=== PATIENT | male | born 1990 | race Caucasian/White ===

== ENCOUNTER 2018-02-10 11:41 | Inpatient (IN) ==
[2018-02-10] MEDS ORDERED: Isovue-370 500 ML INFUS..BTL IV ONE (12:36)
[2018-02-10] MEDS ORDERED: 0.9 % Sodium Chloride 1,000 ML IVC ONE (12:37)
[2018-02-10] MEDS ORDERED: *HR* Morphine 2 MG/ML SYRINGE IVP ONE ×2 (12:37→15:32)
[2018-02-10] MEDS ORDERED: Ondansetron 4 MG/2 ML VIAL IVP ONE ×2 (12:37→20:07)
--- NOTE | 2018-02-10 12:41 | Emergency Department Note ---
Disposition Clinical Impression: Hepatitis Disposition: Admitted As Inpatient Condition: Good Abdominal Pain HPI - General Chief Complaint: ED Abdominal Pain Stated Complaint: abd pain Time Seen by Provider: 02/10/18 12:24 Source: patient Mode of arrival: ambulatory Limitations: no limitations Nursing Notes Reviewed: Yes Vital Signs Reviewed: Yes - History of Present Illness HPI Narrative: Patient presents today to the emergency department for evaluation of generalized abdominal pain. Patient's abdominal pain started approximately 1 week ago. He describes both right upper quadrant as well as generalized abdominal pain that has moderate tenderness to palpation with associated guarding. The patient has also had nausea without significant vomiting. Patient has had what he describes as "white stools". The patient does have a family history of gallbladder disease. He does have a previous history of IV drug use in the past. Patient does smoke on a daily basis. Patient does not take any medications on a regular basis at home. Patient has not had any similar symptoms in the past. Patient has not been worked up for this. Patient will undergo further evaluation for both right upper quadrant abdominal pain as well as concern for liver disease. Blood work and CT scan have been ordered. IV fluids as well as Zofran and morphine have been ordered. Pain Scale: 7 - Related Data Home Medications Medication Instructions Recorded Confirmed No Known Home Drugs 02/10/18 02/10/18 Allergies Allergy/AdvReac Type Severity Reaction Status Date / Time No Known Allergies Allergy Verified 12/15/17 17:23 Review of Systems: CONSTITUTIONAL: Generalized weakness and fatigue No weight loss, fever HEENT: Eyes: No visual changes. Ears, Nose, Throat: No hearing loss, difficulty talking or unable to swallow. SKIN: No rash or itching. CARDIOVASCULAR: No chest pain, chest pressure or chest discomfort. No palpitations or edema. RESPIRATORY: No shortness of breath, cough or sputum. GASTROINTESTINAL: Generalized abdominal pain with nausea and change in stools GENITOURINARY: No burning on urination or hematuria. NEUROLOGICAL: No headache, dizziness, syncope, paralysis, ataxia, numbness or tingling in the extremities. No change in bowel or bladder control. MUSCULOSKELETAL: No muscle pain, back pain, joint pain or stiffness. Psych: No anxiety, depression Abdominal Pain PMH - Past Medical History Medical history: Reports: no medical history Male Surgical History: Reports: orthopedic, other, other Psychiatric history: Reports: no psych history - Social History Smoking status: Former smoker Alcohol use: Reports: none Drug use: Reports: none Physical Exam General: Well appearing, nontoxic, no acute distress Head: Normocephalic Atraumatic Eyes: Jaundiced to sclera, PERRL, EOMI ENT: Airway patent, no stridor Neck: supple, no meningismus Chest: Lungs clear to auscultation bilateral Cardiac: Regular rate and rhythm, no murmurs, rubs or gallops Abdomen: soft, moderate generalized abdominal tenderness worse in the right upper quadrant with associated guarding but no rebound tenderness, nondistended; Musculoskeletal: Calves symmetric, nontender Skin: No rash, normal skin tone Neuro: Alert and Oriented to person, place, and time; No focal deficit, CN 2-12 symmetric and intact Course - Reevaluation(s) Reevaluation #1: Medications to help improve symptoms. Patient with acute hepatitis and elevation in the bilirubin. Possible viral versus other etiology considered. Acetaminophen negative. CAT scan does not show a gallstone within the common bile duct. Patient will require further evaluation. We will discuss with GI to determine if patient can stay at our facility or not. - Consultations Consultation #1: Discussed with Dr. Sanchez. Patient is able to stay at this facility for further workup. Consultation #2: Discussed with hospitalist. Patient accepted for admission. Vital Signs Temperature 98.5 F 02/10/18 11:45 Pulse Rate 96 02/10/18 11:45 Respiratory Rate 18 02/10/18 11:45 Blood Pressure 117/77 02/10/18 11:45 O2 Sat by Pulse Oximetry 99 02/10/18 11:45 Temperature 97.7 F 02/10/18 23:31 Pulse Rate 68 02/10/18 23:31 Respiratory Rate 14 02/10/18 23:31 Blood Pressure 109/64 02/10/18 17:20 O2 Sat by Pulse Oximetry 97 02/10/18 23:31 Oxygen Delivery Oxygen Delivery Room Air Abdominal Pain - Lab Data Result diagrams: 02/10/18 12:31 02/10/18 12:31 Lab Results 02/10/18 02/10/18 02/10/18 Range/Units 12:31 12:31 12:31 WBC 7.0 (4.3-11.1) K/mcL RBC 5.31 (4.19-5.50) M/mcL Hgb 15.3 (12.9-16.9) g/dL Hct 46.7 (37.5-50.1) % MCV 87.9 (83.0-100.0) fL MCH 28.8 (28.0-33.3) pg MCHC 32.8 (31.6-35.5) g/dL RDW 14.8 H (11.5-14.5) % Plt Count 319 (140-400) K/mcL MPV 10.2 (9.4-12.4) fL Immature Gran % 0.3 (0-4) % Seg Neutrophils % 64.8 % Lymphocytes % 22.3 % Monocytes % 9.1 % Eosinophils % 2.4 % Basophils % 1.1 % Neutrophils # 4.5 (1.6-8.9) K/mcL Lymphocytes # 1.6 (0.6-4.6) K/mcL Monocytes # 0.6 (0.0-1.3) K/mcL Eosinophils # 0.2 (0.0-0.6) K/mcL Basophils # 0.1 (0.0-0.2) K/mcL PT 12.2 H (9.4-12.1) Seconds INR 1.1 Sodium 135 L (136-145) mEq/L Potassium 3.7 (3.5-5.1) mEq/L Chloride 104 (98-107) mEq/L Carbon Dioxide 25 (23-29) mEq/L BUN 6 (6-20) mg/dL Creatinine 0.70 (0.70-1.30) mg/dL Est GFR ( Amer) > 60 (> 60) Est GFR (Non-Af Amer) > 60 (> 60) BUN/Creatinine Ratio 9 (6-26) Glucose 127 H (70-105) mg/dL Calculated Osmolality 279 L (280-300) Lactic Acid (0.5-2.2) mmol/L Calcium 8.9 (8.6-10.3) mg/dL Total Bilirubin 9.6 H (0.3-1.0) mg/dL Direct Bilirubin 6.5 H (0.0-0.2) mg/dL Indirect Bilirubin 3.1 H (0.0-1.2) mg/dL AST 941 H (13-39) Units/L ALT > 500 H (7-52) Units/L Alkaline Phosphatase 158 H (34-104) Units/L Creatine Kinase 27 L (30-223) Units/L Serum Total Protein 6.1 L (6.4-8.9) g/dL Albumin 3.7 (3.5-5.7) g/dL Globulin 2.4 (2.4-3.5) g/dL Albumin/Globulin Ratio 1.5 (1.1-2.2) Amylase 37 (29-103) Units/L Lipase 37 (11-82) Units/L Urine Color (Yellow) Urine Clarity (Clear) Urine pH (5.0-8.0) pH Units Ur Specific Seco (1.010-1.025) Urine Protein (Neg-Trace) mg/dL Urine Glucose (UA) (Normal) mg/dL Urine Ketones (Negative) mg/dL Urine Blood (Negative) Urine Nitrite (Negative) Urine Bilirubin (Negative) Urine Urobilinogen (Normal) mg/dL Ur Leukocyte Esterase (Negative) Urine Microscopic RBC (0-3) per hpf Ur Squamous Epith Cells (None-Few) per lpf Urine Bacteria (None-Few) per hpf Hyaline Casts (None-Few) per lpf Ur Culture Indicated? (NO) Acetaminophen < 10 L (10-20) mcg/mL Hep Bs Antigen (Nonreactive) 02/10/18 02/10/18 02/10/18 Range/Units 12:31 13:48 14:20 WBC (4.3-11.1) K/mcL RBC (4.19-5.50) M/mcL Hgb (12.9-16.9) g/dL Hct (37.5-50.1) % MCV (83.0-100.0) fL MCH (28.0-33.3) pg MCHC (31.6-35.5) g/dL RDW (11.5-14.5) % Plt Count (140-400) K/mcL MPV (9.4-12.4) fL Immature Gran % (0-4) % Seg Neutrophils % % Lymphocytes % % Monocytes % % Eosinophils % % Basophils % % Neutrophils # (1.6-8.9) K/mcL Lymphocytes # (0.6-4.6) K/mcL Monocytes # (0.0-1.3) K/mcL Eosinophils # (0.0-0.6) K/mcL Basophils # (0.0-0.2) K/mcL PT (9.4-12.1) Seconds INR Sodium (136-145) mEq/L Potassium (3.5-5.1) mEq/L Chloride (98-107) mEq/L Carbon Dioxide (23-29) mEq/L BUN (6-20) mg/dL Creatinine (0.70-1.30) mg/dL Est GFR ( Amer) (> 60) Est GFR (Non-Af Amer) (> 60) BUN/Creatinine Ratio (6-26) Glucose (70-105) mg/dL Calculated Osmolality (280-300) Lactic Acid 1.5 (0.5-2.2) mmol/L Calcium (8.6-10.3) mg/dL Total Bilirubin (0.3-1.0) mg/dL Direct Bilirubin (0.0-0.2) mg/dL Indirect Bilirubin (0.0-1.2) mg/dL AST (13-39) Units/L ALT (7-52) Units/L Alkaline Phosphatase (34-104) Units/L Creatine Kinase (30-223) Units/L Serum Total Protein (6.4-8.9) g/dL Albumin (3.5-5.7) g/dL Globulin (2.4-3.5) g/dL Albumin/Globulin Ratio (1.1-2.2) Amylase (29-103) Units/L Lipase (11-82) Units/L Urine Color Dark Yellow (Yellow) Urine Clarity Slightly Hazy (Clear) Urine pH 6.5 (5.0-8.0) pH Units Ur Specific Seco 1.008 L (1.010-1.025) Urine Protein Negative (Neg-Trace) mg/dL Urine Glucose (UA) Normal (Normal) mg/dL Urine Ketones Negative (Negative) mg/dL Urine Blood Negative (Negative) Urine Nitrite Negative (Negative) Urine Bilirubin Moderate H (Negative) Urine Urobilinogen Normal (Normal) mg/dL Ur Leukocyte Esterase Negative (Negative) Urine Microscopic RBC 0-3 (0-3) per hpf Ur Squamous Epith Cells None Seen (None-Few) per lpf Urine Bacteria None Seen (None-Few) per hpf Hyaline Casts None Seen (None-Few) per lpf Ur Culture Indicated? NO (NO) Acetaminophen (10-20) mcg/mL Hep Bs Antigen Nonreactive (Nonreactive)
[2018-02-10 12:57] LABS: Basophils # 0.1 K/mcL (0.0-0.2); Basophils % 1.1 %; Eosinophils # 0.2 K/mcL (0.0-0.6); Eosinophils % 2.4 %; Hematocrit 46.7 % (37.5-50.1); Hemoglobin 15.3 g/dL (12.9-16.9); Immature Granulocytes % 0.3 % (0-4); Lymphocytes # 1.6 K/mcL (0.6-4.6); Lymphocytes % 22.3 %; Mean Corpuscular HGB Conc 32.8 g/dL (31.6-35.5); Mean Corpuscular Hemoglobin 28.8 pg (28.0-33.3); Mean Corpuscular Volume 87.9 fL (83.0-100.0); Mean Platelet Volume 10.2 fL (9.4-12.4); Monocytes # 0.6 K/mcL (0.0-1.3); Monocytes % 9.1 %; Neutrophils # 4.5 K/mcL (1.6-8.9); Platelet Count 319 K/mcL (140-400); Red Blood Count 5.31 M/mcL (4.19-5.50); Red Cell Distribution Width 14.8 % (11.5-14.5); Segmented Neutrophils % 64.8 %
[2018-02-10 13:05] LABS: INR 1.1; Prothrombin Time 12.2 Seconds (9.4-12.1)
[2018-02-10 13:26] LABS: Acetaminophen < 10 mcg/mL (10-20); Alanine Aminotransferase > 500 Units/L (7-52); Albumin 3.7 g/dL (3.5-5.7); Albumin/Globulin Ratio 1.5 (1.1-2.2); Alkaline Phosphatase 158 Units/L (34-104); Amylase 37 Units/L (29-103); Aspartate Amino Transferase 941 Units/L (13-39); BUN/Creatinine Ratio 9 (6-26); Bilirubin,Direct 6.5 mg/dL (0.0-0.2); Bilirubin,Indirect 3.1 mg/dL (0.0-1.2); Bilirubin,Total 9.6 mg/dL (0.3-1.0); Blood Urea Nitrogen 6 mg/dL (6-20); Calcium 8.9 mg/dL (8.6-10.3); Carbon Dioxide 25 mEq/L (23-29); Chloride 104 mEq/L (98-107); Creatine Kinase 27 Units/L (30-223); Globulin 2.4 g/dL (2.4-3.5); Glucose 127 mg/dL (70-105); Lipase 37 Units/L (11-82); Osmolality,Calculated 279 (280-300); Potassium 3.7 mEq/L (3.5-5.1); Sodium 135 mEq/L (136-145); Total Protein 6.1 g/dL (6.4-8.9); eGFR For Non-African Americans > 60 (> 60)
[2018-02-10 14:02] LABS: Bilirubin,Urine Moderate (Negative); Blood,Urine Negative (Negative); Color,Urine Dark Yellow (Yellow); Glucose,Urine (UA) Normal (Normal); Ketones,Urine Negative (Negative); Leukocyte Esterase,Urine Negative (Negative); Nitrite,Urine Negative (Negative); PH,Urine 6.5 pH Units (5.0-8.0); Protein,Urine Negative (Neg-Trace); Specific Gravity,Urine 1.008 (1.010-1.025); Urobilinogen,Urine Normal (Normal)
[2018-02-10 14:07] LABS: Bacteria,Urine None Seen per hpf (None-Few); Hyaline Casts,Urine None Seen per lpf (None-Few); RBC,Urine 0-3 per hpf (0-3); Squamous Epithelial Cell,Urine None Seen per lpf (None-Few)
[2018-02-10 14:19] LABS: Clarity,Urine Slightly Hazy (Clear)
[2018-02-10 15:28] LABS: Hepatitis B Surface Antigen Nonreactive (Nonreactive)
[2018-02-10] MEDS ORDERED: Naloxone 0.4 MG/ML INJ IVP PRN (17:17)
--- NOTE | 2018-02-10 17:37 | Internal Med History&Physical ---
Date of Encounter: 02/10/18 Time of Encounter: 17:00 Internal Medicine - H&P: HPI Chief complaint: Abdominal Pain Admitted From: Home Plans for Post Hospital Care: Home History of present illness: Mr. Nguyen is a 27 year old male with no significant past medical history who presents for 7/10 sharp constant abdominal pain since last Wednesday02/04/2018 getting progressively worse. Abdominal pain accompanied by white stools, dark urine, nausea, and chills. No alleviating or exacerbating factors. No current treatment. Admits to getting a tattoo on his left arm 3 months ago and is unsure if the tattoo needle was clean or contaminated. Also admits to unprotected sex with 5 female partners over the past 6 months. Reports his father has Hepatitis C. Had orthopedic surgery to left foot in November 2017 following a fall. Denies any recent street drug use, homosexual activity, homelessness, or incarceration. Has never experienced abdominal pain like this before. Discussed patient with Dr Ortiz. Past Med Surg Social Fam HX - Past Medical History Medical history: no medical history Psychiatric history: no psych history - Past Surgical History Additional surgical history: right hand sx - Social History Smoking Status: Former smoker Smokeless Tobacco Status: No Alcohol use: none Drug use: none Internal Medicine - H&P: Meds No Known Home Drugs 02/10/18 [History] 3 Allergy/AdvReac Type Severity Reaction Status Date / Time No Known Allergies Allergy Verified 12/15/17 17:23 All Systems PM: A 10-system review of systems was performed and is negative for pertinent findings except as documented above in the HPI. - Constitutional Vitals: Temp Pulse Resp BP Pulse Ox 98.4 F 70 16 109/64 97 02/10/18 17:20 02/10/18 17:20 02/10/18 17:20 02/10/18 17:20 02/10/18 17:20 Exam: General: Alert and oriented. Skin:Normal color, no rash, no lesions. HEENT:Pupils equal, round and reactive. Cardiovascular:Normal S1 & S2, no rubs, murmurs or gallops. No JVD. Pulse regular. Lungs:Normal breath sounds, no wheezes or crackles. Abdomen:Soft, no rigidity. Tenderness noted with and without palpation throughout abdomen but primarily in RUQ. No rebound tenderness. Bowel sounds hyperactive. Extremities:No deformity, no edema or tenderness, no joint swelling or clubbing. Neurological:Normal cognition and motor skills. Pulses:Carotid and radial pulses normal +2. Rest of the physical exam is non contributory. Internal Med - H&P Results - Labs CBC & Chem 7: 02/10/18 12:31 02/10/18 12:31 - Assessment and plan (1) Hepatitis Current Visit: Yes Status: Suspected Assessment and plan: GI consulted by ER. Repeat labs in a.m. Hepatitis profile pending. (2) Tobacco abuse Current Visit: Yes Status: Chronic Assessment and plan: Smoking cessation encouraged. Denies need for nicotine patch. - Time Spent With Patient Total time spent is greater than 50% in coordination of care (as documented) at patient's floor/unit and/or counseling patient:
[2018-02-10] MEDS: Ibuprofen 400 MG TABLET PO PRN (18:41)
[2018-02-10] MEDS ORDERED: Ketorolac 15 MG/ML VIAL IVP ONE (20:07)
[2018-02-11 03:30] LABS: Hepatitis A Antibody IgM Nonreactive (Nonreactive); Hepatitis B Core IgM Nonreactive (Nonreactive)
[2018-02-11 05:18] LABS: Hepatitis C Virus Antibody Reactive (Nonreactive)
[2018-02-11 05:45] LABS: Basophils # 0.1 K/mcL (0.0-0.2); Basophils % 1.1 %; Eosinophils # 0.3 K/mcL (0.0-0.6); Eosinophils % 4.4 %; Hematocrit 42.4 % (37.5-50.1); Immature Granulocytes % 0.3 % (0-4); Lymphocytes # 1.9 K/mcL (0.6-4.6); Lymphocytes % 30.9 %; Mean Corpuscular Hemoglobin 28.6 pg (28.0-33.3); Mean Corpuscular Volume 86.7 fL (83.0-100.0); Mean Platelet Volume 10.7 fL (9.4-12.4); Monocytes # 0.6 K/mcL (0.0-1.3); Monocytes % 10.1 %; Neutrophils # 3.3 K/mcL (1.6-8.9); Platelet Count 292 K/mcL (140-400); Red Blood Count 4.89 M/mcL (4.19-5.50); Red Cell Distribution Width 14.9 % (11.5-14.5); Segmented Neutrophils % 53.2 %
[2018-02-11 07:07] LABS: Alanine Aminotransferase > 500 Units/L (7-52); Albumin 3.2 g/dL (3.5-5.7); Albumin/Globulin Ratio 1.5 (1.1-2.2); Alkaline Phosphatase 138 Units/L (34-104); Aspartate Amino Transferase 857 Units/L (13-39); BUN/Creatinine Ratio 7 (6-26); Bilirubin,Direct 6.3 mg/dL (0.0-0.2); Bilirubin,Indirect 3.2 mg/dL (0.0-1.2); Bilirubin,Total 9.5 mg/dL (0.3-1.0); Blood Urea Nitrogen 5 mg/dL (6-20); Calcium 8.5 mg/dL (8.6-10.3); Carbon Dioxide 24 mEq/L (23-29); Chloride 105 mEq/L (98-107); Globulin 2.2 g/dL (2.4-3.5); Glucose 102 mg/dL (70-105); Osmolality,Calculated 281 (280-300); Potassium 3.8 mEq/L (3.5-5.1); Sodium 137 mEq/L (136-145); Total Protein 5.4 g/dL (6.4-8.9); eGFR For Non-African Americans > 60 (> 60)
[2018-02-11] MEDS: Ibuprofen 400 MG TABLET PO PRN (10:38)
--- NOTE | 2018-02-11 11:11 | Gastroenterology Consult Note ---
<Issa De Anda Connie - Last Filed: 02/11/18 11:11> Date of Encounter: 02/11/18 Time of Encounter: 10:00 - Assessment and plan (1) Abdominal pain Current Visit: Yes Status: Acute Assessment and plan: CT A/P shows moderate gallbladder wall edema with a small amount of pericholecystic fluid. No evidence of calcified gallstones. Hepatic steatosis, with mild periportal edema. Moderate amount of inflammation within the hepatic hilum and the gallbladder fossa. Mildly enlarged periportal and upper abdominal lymph nodes. Findings may be seen in the setting of hepatitis. Check RUQ US. Qualifiers: Abdominal location: generalized Qualified Code(s): R10.84 - Generalized abdominal pain (2) Hepatitis C antibody test positive Current Visit: Yes Status: Acute Assessment and plan: Hepatitis C screening positive. Check hepatitis C quantitative and genotype to evaluate for active infection. (3) Elevated LFTs Current Visit: Yes Status: Acute Assessment and plan: Complete liver workup and RUQ US. (4) Jaundice Current Visit: Yes Status: Acute Assessment and plan: Total bili elevated at 9.5 with AST 857 and ALT > 500. Complete liver workup and right upper quadrant ultrasound. Hepatitis A and B negative. (5) Fatty liver Current Visit: Yes Status: Acute Assessment and plan: Complete liver workup and right upper quadrant ultrasound. - Time Spent With Patient Total time spent is greater than 50% in coordination of care (as documented) at patient's floor/unit and/or counseling patient: GI History of Present Illness - Data of Consult Patient: new to practice Consult date: 02/11/18 Requesting Physician: Christian Bravo MD - Consult Narrative Reason for consult: Elevated LFTs, Hepatitis History of present illness: Mr. Nguyen is a 27 year old male with no significant PMHx who presented to the ED with complaints of abdominal pain that started on 02/04 and had progressively worsened. He reports white stools, nausea, and chills. Patient states greasy or fatty foods worsen abdominal pain. Admits to getting a tattoo on his left arm 3 months ago and is unsure if the tattoo needle was clean or contaminated. Also admits to unprotected sex with 5 female partners over the past 6 months. Reports his father has Hepatitis C. He denies history of IV drug use, but admits to history of snorting drugs. CT A/P shows moderate gallbladder wall edema with a small amount of pericholecystic fluid. No evidence of calcified gallstones. Hepatic steatosis, with mild periportal edema. Moderate amount of inflammation within the hepatic hilum and the gallbladder fossa. Mildly enlarged periportal and upper abdominal lymph nodes. Findings may be seen in the setting of hepatitis. Procedures: None NSAIDs: None Anticoagulation: None Past Med Surg Social Fam HX - Past Medical History Medical history: no medical history Psychiatric history: no psych history - Past Surgical History Additional surgical history: right hand sx - Social History Smoking Status: Former smoker Smokeless Tobacco Status: No Alcohol use: none Drug use: none - Family History Mother Age: 54 Living Status: Still Living Hx Family Autoimmune Disorders: Yes (Rheumatoid arthritis) - Gastrointestinal Gastrointestinal: Present: as per HPI - Constitutional Constitutional: as per HPI - EENT Eyes: as per HPI Ears: Present: as per HPI Nose, mouth and throat: Present: as per HPI - Cardiovascular Cardiovascular ROS: Present: as per HPI - Respiratory Respiratory IM: Present: as per HPI - Genitourinary Genitourinary: Absent: change in color, Urinary frequency - Neurological ROS Neurological GI: Present: as per HPI - Hematologic/Lymphatic Hematologic/Lymphatic pediatric: Present: as per HPI - Musculoskeletal Musculoskeletal ROS GI: Present: as per HPI - Integumentary Integumentary GI: Present: as per HPI - Psychiatric ROS Psychiatric GI: Present: as per HPI - Endocrine Endocrine IM: Present: as per HPI - Constitutional Vitals: Temp Pulse Resp BP Pulse Ox 98.2 F 70 18 94/58 97 02/11/18 08:09 02/11/18 08:09 02/11/18 08:09 02/11/18 08:09 02/11/18 08:09 General appearance: Present: cooperative, A&O X 3, no acute distress, answers questions appropriately - Head Head exam: Present: atraumatic, normocephalic - Eye Eye exam: Present: scleral icterus. Absent: normal appearance - ENT ENT exam: Present: mucous membranes moist - Neck Neck exam general surgery: Present: normal inspection, trachea midline - Respiratory Respiratory exam: Present: CTAB. Absent: rales, rhonchi - Cardiovascular Cardiovascular exam: Present: RRR, +S1, +S2 - GI/Abdominal GI/Abdominal exam: Present: guarding, soft, tenderness (generalized), no peritoneal signs. Absent: distended, firm - Rectal Rectal exam: Present: deferred - Extremities Exam Extremities exam: Present: warm - Neurological Exam Neurological exam: Present: no focal deficits - Psychiatric Psychiatric exam: Present: normal affect, normal mood - Skin Skin exam: Present: dry, intact, warm. Absent: normal color (Jaundice) Results - Labs CBC & Chem 7: 02/11/18 04:53 02/11/18 04:53 Labs: Last Result Calcium 8.5 mg/dL (8.6-10.3) L 02/11/18 04:53 Ferritin 1492 ng/mL (20-250) H 02/11/18 09:18 Entire Visit Hgb 14.0 g/dL (12.9-16.9) 02/11/18 04:53 Hct 42.4 % (37.5-50.1) 02/11/18 04:53 PT 12.2 Seconds (9.4-12.1) H 02/10/18 12:31 Ferritin 1492 ng/mL (20-250) H 02/11/18 09:18 Total Bilirubin 9.5 mg/dL (0.3-1.0) H 02/11/18 04:53 AST 857 Units/L (13-39) H 02/11/18 04:53 ALT > 500 Units/L (7-52) H 02/11/18 04:53 Amylase 37 Units/L (29-103) 02/10/18 12:31 Lipase 37 Units/L (11-82) 02/10/18 12:31 Acetaminophen < 10 mcg/mL (10-20) L 02/10/18 12:31 - ABG ABG results: PT/INR, D-dimer PT 12.2 Seconds (9.4-12.1) H 02/10/18 12:31 Consult Discharge Plan - Plan Referrals: NONE,PCP [Primary Care Provider] - <Konstantin Hodges - Last Filed: 02/11/18 12:48> Date of Encounter: 02/11/18 - Time Spent With Patient Total time spent is greater than 50% in coordination of care (as documented) at patient's floor/unit and/or counseling patient: GI History of Present Illness - Data of Consult Requesting Physician: Christian Bravo MD - Consult Narrative History of present illness: Mr. Nguyen is a 27 year old male - Constitutional Vitals: Temp Pulse Resp BP Pulse Ox 98.1 F 72 16 100/63 98 02/11/18 11:47 02/11/18 11:47 02/11/18 11:47 02/11/18 11:47 02/11/18 11:47 Results - Labs CBC & Chem 7: 02/11/18 04:53 02/11/18 04:53 Labs: Last Result Calcium 8.5 mg/dL (8.6-10.3) L 02/11/18 04:53 Ferritin 1492 ng/mL (20-250) H 02/11/18 09:18 Entire Visit Hgb 14.0 g/dL (12.9-16.9) 02/11/18 04:53 Hct 42.4 % (37.5-50.1) 02/11/18 04:53 PT 12.2 Seconds (9.4-12.1) H 02/10/18 12:31 Ferritin 1492 ng/mL (20-250) H 02/11/18 09:18 Total Bilirubin 9.5 mg/dL (0.3-1.0) H 02/11/18 04:53 AST 857 Units/L (13-39) H 02/11/18 04:53 ALT > 500 Units/L (7-52) H 02/11/18 04:53 Amylase 37 Units/L (29-103) 02/10/18 12:31 Lipase 37 Units/L (11-82) 02/10/18 12:31 Acetaminophen < 10 mcg/mL (10-20) L 02/10/18 12:31 - ABG ABG results: PT/INR, D-dimer PT 12.2 Seconds (9.4-12.1) H 02/10/18 12:31 - Attending Attestation I have personally performed a face to face evaluation on this patient. I have reviewed and agree with the care plan. History and Exam by me shows: Pt seen no active issues. on examination vision does has diffuse jaundice. A: Acute hepatitis C with elevated liver function testing. Recommendation: Ultrasound of the gallbladder supportive care for now. Follow INR and LFTs
[2018-02-11] MEDS: *HR* OxyCODONE Immed Rel 5 MG TABLET PO PRN ×2 (12:55→19:00)
--- NOTE | 2018-02-11 14:23 | Internal Med Progress Note ---
<Ananda Ledesma - Last Filed: 02/11/18 14:08> Hospitalist Progress Note - Encounter Date of Encounter: 02/11/18 Time of Encounter: 11:00 - Subjective Interval History: Family at bedside. Patient gives permission to discuss his medical management in front of family. Patient continues to have complaints of RUQ pain that does not radiate. Pain is sharp and constant. Does admit to improvement since admission. Patient also has history of tattoos by friend. Denies IV drug use. Denies alcohol use and smokes occasionally. Denies illicit drug use. Sexually active without concern of STDs, denies penile discharge or pain. He has nausea but able to tolerate PO intake. Voiding without difficulties. No f/c/vomiting since admission. - Exam Vitals: Temp Pulse Resp BP Pulse Ox 98.1 F 72 16 100/63 98 02/11/18 11:47 02/11/18 11:47 02/11/18 11:47 02/11/18 11:47 02/11/18 11:47 Exam: General: Alert and oriented. Skin: Jaundice diffusely HEENT:scleral icterus bilaterally noted. Cardiovascular:Normal S1 & S2, no rubs, murmurs or gallops. No JVD. Pulse regular. Lungs:Normal breath sounds, no wheezes or crackles. Abdomen:Soft, no rigidity. Tenderness noted with and without palpation throughout abdomen but primarily in RUQ. No rebound tenderness. Bowel sounds hyperactive. Extremities:No deformity, no edema or tenderness, no joint swelling or clubbing. Neurological:Normal cognition and motor skills. Pulses:Carotid and radial pulses normal +2. Rest of the physical exam is non contributory. - Assessment and Plan (1) Hepatitis Current Visit: Yes Status: Suspected Assessment and Plan: Hepatitis C screening positive with multiple risk factors. Will obtain hep C quant and genotype. CT A/P shows moderate gallbladder wall edema with a small amount of pericholecystic fluid. No evidence of calcified gallstones. Hepatic steatosis, with mild periportal edema. Moderate amount of inflammation within the hepatic hilum and the gallbladder fossa. Mildly enlarged periportal and upper abdominal lymph nodes. Findings may be seen in the setting of hepatitis. GI consulted and liver U/S ordered. Will continue supportive care pending genotyping and quant. (2) Abdominal pain Current Visit: Yes Status: Acute Assessment and Plan: see above. (3) Hepatitis C antibody test positive Current Visit: Yes Status: Acute Assessment and Plan: see above (4) Elevated LFTs Current Visit: Yes Status: Acute Assessment and Plan: Transaminitis improved with supportive care. (5) Jaundice Current Visit: Yes Status: Acute Assessment and Plan: secondary to hep C infection (6) Tobacco abuse Current Visit: Yes Status: Chronic Assessment and Plan: Encouraged cessation. DVT Prophylaxis: Lovenox 40mg SQ - Time Spent with Patient Total time spent is greater than 50% in coordination of care (as documented) at patient's floor/unit and/or counseling patient: Greater than 35 minutes Plan of Care Discussed with: family Internal Medicine: Result - Labs CBC & Chem 7: 02/11/18 04:53 02/11/18 04:53 - ABG Interpretation ABG results: PT/INR, D-dimer PT 12.2 Seconds (9.4-12.1) H 02/10/18 12:31 - VTE Reasons for not Prescribing Prophylaxis: Treatment not Indicated - Low risk for VTE Consult Discharge Plan - Plan Referrals: NONE,PCP [Primary Care Provider] - <Christian Flores - Last Filed: 02/11/18 17:06> Hospitalist Progress Note - Encounter Date of Encounter: 02/11/18 - Exam Vitals: Temp Pulse Resp BP Pulse Ox 98.2 F 64 15 113/74 99 02/11/18 14:12 02/11/18 14:12 02/11/18 14:12 02/11/18 14:12 02/11/18 14:12 - Assessment and Plan (1) Hepatitis Current Visit: Yes Status: Suspected (2) Tobacco abuse Current Visit: Yes Status: Chronic - Time Spent with Patient Total time spent is greater than 50% in coordination of care (as documented) at patient's floor/unit and/or counseling patient: Internal Medicine: Result - Labs CBC & Chem 7: 02/11/18 04:53 02/11/18 04:53 - ABG Interpretation ABG results: PT/INR, D-dimer PT 12.2 Seconds (9.4-12.1) H 02/10/18 12:31 - Impressions Impressions Liver Ultrasound 02/11/18 15:30 IMPRESSION: 1. No evidence of cholecystitis. 2. The gallbladder is nondistended, but appears thick walled. On the previous CT exam, there was periportal edema. Findings suggest liver dysfunction. Correlation with the patient's liver function tests is recommended. No biliary dilatation. D/ / Dave Mendoza MD / Dave Mendoza MD Interpreting Provider: Dave Mendoza MD - Attending Attestation I examined this patient and my medical decision-making was reviewed with the Resident Physician Dr. Ledesma. I agree with the documented findings, disposition and treatment plan as described except to the extent set forth below. Mr. Nguyen is a 27 year old male with no significant past medical history who presents for 11/16 sharp constant abdominal pain since last Wednesday02/04/2018 getting progressively worse. Abdominal pain accompanied by white stools, dark urine, nausea, and chills. No alleviating or exacerbating factors. No current treatment. Admits to getting a tattoo on his left arm 3 months ago and is unsure if the tattoo needle was clean or contaminated. Also admits to unprotected sex with 5 female partners over the past 6 months. Reports his father has Hepatitis C. Had orthopedic surgery to left foot in November 2017 following a fall. Denies any recent street drug use, homosexual activity, homelessness, or incarceration. Has never experienced abdominal pain like this before. Pt still c/o abdominal pain. Denied any CP // SOB. No fever. Gen: A, A, O x 3 Chest: Diminished BS b/l Heart: S1S2+ RRR No murmurs a/p 1. Acute hepatitis due to Hep C will f/u on U/S of Liver cont trend on LFT's check Hep C viral load and Velia type <Ananda Ledesma - Last Filed: 02/11/18 14:08> (2) Abdominal pain Qualifiers: Abdominal location: generalized Qualified Code(s): R10.84 - Generalized abdominal pain
--- NOTE | 2018-02-11 17:42 | Electrocardiograph Report ---
[facility] Test Date: 2018-02-10 Pat Name: João Nguyen Department: [id number] Room: 3A44 Gender: M Endodontist: : 1990 Requested By: [id number] Order Number: [id number] Reading MD: Allen Payne Measurements Intervals [place] Rate: 83 P: 51 TX: 148 QRS: 98 QRSD: 94 T: 6 QT: 348 QTc: 409 Interpretive Statements Sinus rhythm Borderline right axis deviation Electronically Signed On 02-11-2018 17:41:06 EDT by Allen Payne
[2018-02-11] MEDS: Ondansetron 4 MG/2 ML VIAL IVP PRN (17:50)
[2018-02-11] MEDS: Melatonin 3 MG TABLET PO PRN (22:08)
[2018-02-12] MEDS: *HR* OxyCODONE Immed Rel 5 MG TABLET PO PRN ×4 (01:13→21:55)
[2018-02-12 10:52] LABS: Red Blood Count 4.71 M/mcL (4.19-5.50)
[2018-02-12 10:53] LABS: Basophils # 0.1 K/mcL (0.0-0.2); Basophils % 1.2 %; Eosinophils # 0.2 K/mcL (0.0-0.6); Eosinophils % 3.2 %; Hematocrit 41.5 % (37.5-50.1); Hemoglobin 13.8 g/dL (12.9-16.9); Immature Granulocytes % 0.2 % (0-4); Lymphocytes # 1.7 K/mcL (0.6-4.6); Lymphocytes % 29.9 %; Mean Corpuscular HGB Conc 33.3 g/dL (31.6-35.5); Mean Corpuscular Hemoglobin 29.3 pg (28.0-33.3); Mean Corpuscular Volume 88.1 fL (83.0-100.0); Mean Platelet Volume 10.3 fL (9.4-12.4); Monocytes # 0.6 K/mcL (0.0-1.3); Monocytes % 10.3 %; Neutrophils # 3.1 K/mcL (1.6-8.9); Platelet Count 278 K/mcL (140-400); Red Cell Distribution Width 15.4 % (11.5-14.5); Segmented Neutrophils % 55.2 %
[2018-02-12 12:10] LABS: Alanine Aminotransferase > 500 Units/L (7-52); Albumin 3.2 g/dL (3.5-5.7); Albumin/Globulin Ratio 1.6 (1.1-2.2); Alkaline Phosphatase 126 Units/L (34-104); Aspartate Amino Transferase 857 Units/L (13-39); BUN/Creatinine Ratio 6 (6-26); Bilirubin,Total 10.2 mg/dL (0.3-1.0); Blood Urea Nitrogen 5 mg/dL (6-20); Calcium 8.3 mg/dL (8.6-10.3); Carbon Dioxide 25 mEq/L (23-29); Chloride 106 mEq/L (98-107); Glucose 136 mg/dL (70-105); Osmolality,Calculated 283 (280-300); Sodium 137 mEq/L (136-145); Total Protein 5.2 g/dL (6.4-8.9); eGFR For Non-African Americans > 60 (> 60)
--- NOTE | 2018-02-12 13:14 | Internal Med Progress Note ---
Hospitalist Progress Note - Encounter Date of Encounter: 02/12/18 Time of Encounter: 09:55 - Subjective Interval History: Mr. Nguyen is a 27 year old male with no significant past medical history who presents for 7/10 sharp constant abdominal pain since last Wednesday02/04/2018 getting progressively worse. Abdominal pain accompanied by white stools, dark urine, nausea, and chills. No alleviating or exacerbating factors. No current treatment. Admits to getting a tattoo on his left arm 3 months ago and is unsure if the tattoo needle was clean or contaminated. Also admits to unprotected sex with 5 female partners over the past 6 months. Reports his father has Hepatitis C. Had orthopedic surgery to left foot in November 2017 following a fall. Denies any recent street drug use, homosexual activity, homelessness, or incarceration. Has never experienced abdominal pain like this before. Pt still c/o abdominal pain. Denied any CP // SOB. No fever. - Exam Vitals: Temp Pulse Resp BP Pulse Ox 98.0 F 74 17 91/51 97 02/12/18 11:30 02/12/18 11:30 02/12/18 11:30 02/12/18 11:30 02/12/18 11:30 Exam: Gen: Alert, awake, Oriented to time,place and person Chest: Diminished breath sounds B/L, No wheezing, No crackles, No rales Heart: S1S2+ RRR No murmurs Abd: Soft, mild to moderate tenderness in Rt UQ, BS +, No organomegaly Ext: No edema, pulses are palpable, No calf tenderness Neuro : Benign findings Skin: No rash. - Assessment and Plan (1) Hepatitis Current Visit: Yes Status: Suspected Assessment and Plan: Hep C ab reactive Hep C viral and Velia type ordered cont symptomatic and supportive care reviewed ultrasound of the liver showed hepatitis no signs of cirrhosis (2) Elevated LFTs Current Visit: Yes Status: Acute Assessment and Plan: Due to Hepatitis RUQ US showed hepatic dysfunction with hepatitis cont trend on LFT's GI is on board (3) Jaundice Current Visit: Yes Status: Acute (4) Tobacco abuse Current Visit: Yes Status: Chronic Assessment and Plan: Smoking cessation encouraged. Denies need for nicotine patch. - Time Spent with Patient Total time spent is greater than 50% in coordination of care (as documented) at patient's floor/unit and/or counseling patient: Internal Medicine: Result - Labs CBC & Chem 7: 02/12/18 10:39 02/12/18 10:39 Labs: Short CBC 02/12/18 Range/Units 10:39 WBC 5.7 (4.3-11.1) K/mcL Hgb 13.8 (12.9-16.9) g/dL Hct 41.5 (37.5-50.1) % Plt Count 278 (140-400) K/mcL Neutrophils # 3.1 (1.6-8.9) K/mcL BMP 02/12/18 10:39 Sodium 137 Potassium 4.0 Chloride 106 Carbon Dioxide 25 BUN 5 L Creatinine 0.79 Glucose 136 H Calcium 8.3 L Liver Function 02/12/18 Range/Units 10:39 Total Bilirubin 10.2 H (0.3-1.0) mg/dL AST 857 H (13-39) Units/L ALT > 500 H (7-52) Units/L Alkaline Phosphatase 126 H (34-104) Units/L Albumin 3.2 L (3.5-5.7) g/dL - ABG Interpretation ABG results: PT/INR, D-dimer PT 12.2 Seconds (9.4-12.1) H 02/10/18 12:31 - Impressions Impressions Liver Ultrasound 02/11/18 15:30 IMPRESSION: 1. No evidence of cholecystitis. 2. The gallbladder is nondistended, but appears thick walled. On the previous CT exam, there was periportal edema. Findings suggest liver dysfunction. Correlation with the patient's liver function tests is recommended. No biliary dilatation. D/ / Dave Mendoza MD / Dave Mendoza MD Interpreting Provider: Dave Mendoza MD - VTE Reasons for not Prescribing Prophylaxis: Treatment not Indicated - Low risk for VTE Consult Discharge Plan - Plan Referrals: NONE,PCP [Primary Care Provider] -
[2018-02-12] MEDS: Melatonin 3 MG TABLET PO PRN (22:16)
[2018-02-12] MEDS: Ondansetron 4 MG/2 ML VIAL IVP PRN (22:16)
[2018-02-13] MEDS: *HR* OxyCODONE Immed Rel 5 MG TABLET PO PRN ×3 (04:30→18:38)
[2018-02-13 04:46] LABS: Basophils # 0.1 K/mcL (0.0-0.2); Basophils % 1.6 %; Eosinophils # 0.2 K/mcL (0.0-0.6); Eosinophils % 3.5 %; Hematocrit 40.9 % (37.5-50.1); Hemoglobin 13.7 g/dL (12.9-16.9); Immature Granulocytes % 0.2 % (0-4); Lymphocytes % 34.3 %; Mean Corpuscular HGB Conc 33.5 g/dL (31.6-35.5); Mean Corpuscular Hemoglobin 29.1 pg (28.0-33.3); Mean Platelet Volume 11.4 fL (9.4-12.4); Monocytes # 0.6 K/mcL (0.0-1.3); Monocytes % 10.7 %; Neutrophils # 2.8 K/mcL (1.6-8.9); Platelet Count 263 K/mcL (140-400); Red Cell Distribution Width 15.6 % (11.5-14.5); Segmented Neutrophils % 49.7 %
[2018-02-13 05:22] LABS: Alanine Aminotransferase > 500 Units/L (7-52); Albumin 3.2 g/dL (3.5-5.7); Albumin/Globulin Ratio 1.6 (1.1-2.2); Alkaline Phosphatase 127 Units/L (34-104); Aspartate Amino Transferase 828 Units/L (13-39); BUN/Creatinine Ratio 5 (6-26); Bilirubin,Total 10.9 mg/dL (0.3-1.0); Blood Urea Nitrogen 3 mg/dL (6-20); Calcium 8.5 mg/dL (8.6-10.3); Carbon Dioxide 25 mEq/L (23-29); Chloride 104 mEq/L (98-107); Glucose 122 mg/dL (70-105); Osmolality,Calculated 280 (280-300); Sodium 136 mEq/L (136-145); Total Protein 5.2 g/dL (6.4-8.9); eGFR For Non-African Americans > 60 (> 60)
--- NOTE | 2018-02-13 15:56 | Internal Med Progress Note ---
Hospitalist Progress Note - Encounter Date of Encounter: 02/13/18 Time of Encounter: 13:45 - Subjective Interval History: Mr. Nguyen is a 27 year old male with no significant past medical history who presents for 7/10 sharp constant abdominal pain since last Wednesday02/04/2018 getting progressively worse. Abdominal pain accompanied by white stools, dark urine, nausea, and chills. No alleviating or exacerbating factors. No current treatment. Admits to getting a tattoo on his left arm 3 months ago and is unsure if the tattoo needle was clean or contaminated. Also admits to unprotected sex with 5 female partners over the past 6 months. Reports his father has Hepatitis C. Had orthopedic surgery to left foot in November 2017 following a fall. Denies any recent street drug use, homosexual activity, homelessness, or incarceration. Has never experienced abdominal pain like this before. Pt still c/o abdominal pain. Denied any CP // SOB. No fever. No events over night - Exam Vitals: Temp Pulse Resp BP Pulse Ox 98.1 F 70 16 94/57 97 02/13/18 14:54 02/13/18 14:54 02/13/18 14:54 02/13/18 14:54 02/13/18 14:54 Exam: Gen: Alert, awake, Oriented to time,place and person Chest: Diminished breath sounds B/L, No wheezing, No crackles, No rales Heart: S1S2+ RRR No murmurs Abd: Soft, mild to moderate tenderness in Rt UQ, BS +, No organomegaly Ext: No edema, pulses are palpable, No calf tenderness Neuro : Benign findings Skin: No rash. - Assessment and Plan (1) Hepatitis Current Visit: Yes Status: Suspected Assessment and Plan: Hep C Ab reactive Hep C viral and Velia type ordered - P cont symptomatic and supportive care reviewed ultrasound of the liver showed hepatitis no signs of cirrhosis (2) Elevated LFTs Current Visit: Yes Status: Acute Assessment and Plan: Due to Hepatitis RUQ US showed hepatic dysfunction with hepatitis Total bili still trending high cont trend on LFT's GI is on board (3) Jaundice Current Visit: Yes Status: Acute (4) Tobacco abuse Current Visit: Yes Status: Chronic Assessment and Plan: Smoking cessation encouraged. Denies need for nicotine patch. - Time Spent with Patient Total time spent is greater than 50% in coordination of care (as documented) at patient's floor/unit and/or counseling patient: Internal Medicine: Result - Labs CBC & Chem 7: 02/13/18 04:16 02/13/18 04:16 Labs: Short CBC 02/13/18 Range/Units 04:16 WBC 5.7 (4.3-11.1) K/mcL Hgb 13.7 (12.9-16.9) g/dL Hct 40.9 (37.5-50.1) % Plt Count 263 (140-400) K/mcL Neutrophils # 2.8 (1.6-8.9) K/mcL BMP 02/13/18 04:16 Sodium 136 Potassium 4.0 Chloride 104 Carbon Dioxide 25 BUN 3 L Creatinine 0.65 L Glucose 122 H Calcium 8.5 L Liver Function 02/13/18 Range/Units 04:16 Total Bilirubin 10.9 H (0.3-1.0) mg/dL AST 828 H (13-39) Units/L ALT > 500 H (7-52) Units/L Alkaline Phosphatase 127 H (34-104) Units/L Albumin 3.2 L (3.5-5.7) g/dL - ABG Interpretation ABG results: PT/INR, D-dimer PT 12.2 Seconds (9.4-12.1) H 02/10/18 12:31 - VTE Reasons for not Prescribing Prophylaxis: Treatment not Indicated - Low risk for VTE Consult Discharge Plan - Plan Referrals: NONE,PCP [Primary Care Provider] -
[2018-02-14] MEDS: Melatonin 3 MG TABLET PO PRN ×2 (00:58→22:18)
[2018-02-14] MEDS: *HR* OxyCODONE Immed Rel 5 MG TABLET PO PRN ×4 (00:58→22:15)
[2018-02-14 05:39] LABS: Basophils # 0.1 K/mcL (0.0-0.2); Basophils % 1.3 %; Eosinophils # 0.2 K/mcL (0.0-0.6); Eosinophils % 2.8 %; Hematocrit 40.5 % (37.5-50.1); Hemoglobin 13.6 g/dL (12.9-16.9); Immature Granulocytes % 0.1 % (0-4); Lymphocytes # 2.3 K/mcL (0.6-4.6); Mean Corpuscular HGB Conc 33.6 g/dL (31.6-35.5); Mean Corpuscular Hemoglobin 28.9 pg (28.0-33.3); Mean Corpuscular Volume 86.2 fL (83.0-100.0); Mean Platelet Volume 11.3 fL (9.4-12.4); Monocytes # 0.8 K/mcL (0.0-1.3); Monocytes % 11.8 %; Neutrophils # 3.5 K/mcL (1.6-8.9); Platelet Count 256 K/mcL (140-400); Red Cell Distribution Width 15.8 % (11.5-14.5)
[2018-02-14 06:07] LABS: Alanine Aminotransferase > 500 Units/L (7-52); Albumin 3.3 g/dL (3.5-5.7); Albumin/Globulin Ratio 1.6 (1.1-2.2); Alkaline Phosphatase 130 Units/L (34-104); Aspartate Amino Transferase 746 Units/L (13-39); BUN/Creatinine Ratio 7 (6-26); Bilirubin,Direct 7.7 mg/dL (0.0-0.2); Bilirubin,Total 11.4 mg/dL (0.3-1.0); Blood Urea Nitrogen 5 mg/dL (6-20); Calcium 8.7 mg/dL (8.6-10.3); Carbon Dioxide 28 mEq/L (23-29); Chloride 102 mEq/L (98-107); Globulin 2.1 g/dL (2.4-3.5); Glucose 104 mg/dL (70-105); Osmolality,Calculated 280 (280-300); Potassium 4.1 mEq/L (3.5-5.1); Sodium 136 mEq/L (136-145); Total Protein 5.4 g/dL (6.4-8.9); eGFR For Non-African Americans > 60 (> 60)
[2018-02-14 07:49] LABS: AFP Tumor Marker Non-Pregnant 18 ng/mL (0-9); F-Actin (sm muscle) Ab IgG 11 Units (0-19); HCV Quant Log 7.44 log IU/mL
[2018-02-14 08:07] LABS: ANA IgG by ELISA NONE DETECTED (None Detected)
--- NOTE | 2018-02-14 10:03 | Internal Med Progress Note ---
<Molly Mcclellan - Last Filed: 02/14/18 13:17> Hospitalist Progress Note - Encounter Date of Encounter: 02/14/18 Time of Encounter: 09:40 - Subjective Interval History: Patient seen and examined. No acute events overnight. Patient is resting comfortably in bed with family at bedside. Patient states hes doing alright. Reports upset stomach and pain 6/10 at RUQ. Reprots stools are still halie- colored and urine is dark. Denies fever/chills. Denies chest pain, shortness of breath. Denies nausea/vomiting, diarrhea/constipation. - Exam Vitals: Temp Pulse Resp BP Pulse Ox 98.2 F 86 14 91/58 96 02/14/18 06:53 02/14/18 06:53 02/14/18 06:53 02/14/18 06:53 02/14/18 06:53 Exam: General: Normal body habitus. Alert and oriented x3. No acute distress. Head: atraumatic, normocephalic. Eye: pupils equal and round. Sclera icteric. EOMI. Mouth: oral mucosa moist. Normal oropharynx. Neck: supple. Trachea midline. Lungs: CTAB. No rhonchi, rales or wheezes. No respiratory distress. No accessory muscle use. Cardiovascular: Normal S1 & S2. No rubs or gallops. No JVD. Pulse regular. Abdomen: Soft. Normal bowel sounds. Nondistended, no rigidity. Tender to palpation at epigastrium. Extremities: No deformity, edema or tenderness. No joint swelling or clubbing. Skin: warm, dry, and intact. - Assessment and Plan (1) Hepatitis Current Visit: Yes Status: Acute Assessment and Plan: Secondary to HCV. Hep C Ab reactive. Hep A and B negative. Viral load >27 million[address] abd/pelvis showed hepatitis with hepatic steatosis. Liver U/S showed liver dysfunction. No cirrhosis. No cholecystitis. Clinically improved. Continue symptomatic and supportive care. GI consulted and following. (2) Elevated LFTs Current Visit: Yes Status: Acute Assessment and Plan: Secondary to HCV hepatitis. On admission, total bili elevated at 9.6, AST elevated at 941, and ALT elevated at >500. CT abd/pelvis showed hepatitis with hepatic steatosis. RUQ US showed hepatic dysfunction with hepatitis. Today, total bili elevated at 11.4, AST elevated at 746, and ALT elevated at > 500. Clinically improved. Continue to trend LFT's. GI consulted and following. (3) Tobacco abuse Current Visit: Yes Status: Chronic Assessment and Plan: Smoking cessation encouraged. Denies need for nicotine patch. (4) Jaundice Current Visit: Yes Status: Acute Assessment and Plan: See above. DVT Prophylaxis: Treatment not Indicated - Low risk for VTE - Time Spent with Patient Total time spent is greater than 50% in coordination of care (as documented) at patient's floor/unit and/or counseling patient: Internal Medicine: Result - Labs CBC & Chem 7: 02/14/18 04:57 02/14/18 04:57 Labs: Short CBC 02/14/18 Range/Units 04:57 WBC 6.9 (4.3-11.1) K/mcL Hgb 13.6 (12.9-16.9) g/dL Hct 40.5 (37.5-50.1) % Plt Count 256 (140-400) K/mcL Neutrophils # 3.5 (1.6-8.9) K/mcL BMP 02/14/18 04:57 Sodium 136 Potassium 4.1 Chloride 102 Carbon Dioxide 28 BUN 5 L Creatinine 0.71 Glucose 104 Calcium 8.7 Liver Function 02/14/18 Range/Units 04:57 Total Bilirubin 11.4 H (0.3-1.0) mg/dL Direct Bilirubin 7.7 H (0.0-0.2) mg/dL AST 746 H (13-39) Units/L ALT > 500 H (7-52) Units/L Alkaline Phosphatase 130 H (34-104) Units/L Albumin 3.3 L (3.5-5.7) g/dL - ABG Interpretation ABG results: PT/INR, D-dimer PT 12.2 Seconds (9.4-12.1) H 02/10/18 12:31 - VTE Reasons for not Prescribing Prophylaxis: Treatment not Indicated - Low risk for VTE Consult Discharge Plan - Plan Referrals: NONE,PCP [Primary Care Provider] - <Christian Flores - Last Filed: 02/14/18 16:48> Hospitalist Progress Note - Encounter Date of Encounter: 02/14/18 - Exam Vitals: Temp Pulse Resp BP Pulse Ox 97.8 F 67 14 107/68 98 02/14/18 11:24 02/14/18 11:24 02/14/18 11:24 02/14/18 11:24 02/14/18 11:24 - Assessment and Plan (1) Hepatitis Current Visit: Yes Status: Acute (2) Tobacco abuse Current Visit: Yes Status: Chronic (3) Elevated LFTs Current Visit: Yes Status: Acute (4) Jaundice Current Visit: Yes Status: Acute - Time Spent with Patient Total time spent is greater than 50% in coordination of care (as documented) at patient's floor/unit and/or counseling patient: Internal Medicine: Result - Labs CBC & Chem 7: 02/14/18 04:57 02/14/18 04:57 Labs: Short CBC 02/14/18 Range/Units 04:57 WBC 6.9 (4.3-11.1) K/mcL Hgb 13.6 (12.9-16.9) g/dL Hct 40.5 (37.5-50.1) % Plt Count 256 (140-400) K/mcL Neutrophils # 3.5 (1.6-8.9) K/mcL BMP 02/14/18 04:57 Sodium 136 Potassium 4.1 Chloride 102 Carbon Dioxide 28 BUN 5 L Creatinine 0.71 Glucose 104 Calcium 8.7 Liver Function 02/14/18 Range/Units 04:57 Total Bilirubin 11.4 H (0.3-1.0) mg/dL Direct Bilirubin 7.7 H (0.0-0.2) mg/dL AST 746 H (13-39) Units/L ALT > 500 H (7-52) Units/L Alkaline Phosphatase 130 H (34-104) Units/L Albumin 3.3 L (3.5-5.7) g/dL - ABG Interpretation ABG results: PT/INR, D-dimer PT 12.2 Seconds (9.4-12.1) H 02/10/18 12:31 - Impressions Impressions Bile Acid Absorption NM 02/14/18 12:52 IMPRESSION: Persistent hepatic activity out to 60 minutes indicating hepatocellular dysfunction. This is nonspecific but raises concern for hepatitis. Nonvisualization of the gallbladder and proximal small bowel. Biliary obstruction cannot be entirely excluded. MRCP could be considered for further evaluation if clinically warranted. D/ / William Chavez MD / William Chavez MD Interpreting Provider: William Chavez MD - Attending Attestation I examined this patient and my medical decision-making was reviewed with the Resident Physician Dr. Mcclellan. I agree with the documented findings, disposition and treatment plan as described except to the extent set forth below. Mr. Nguyen is a 27 year old male with no significant past medical history who presents for 7/10 sharp constant abdominal pain since last Wednesday02/04/2018 getting progressively worse. Abdominal pain accompanied by white stools, dark urine, nausea, and chills. No alleviating or exacerbating factors. No current treatment. Admits to getting a tattoo on his left arm 3 months ago and is unsure if the tattoo needle was clean or contaminated. Also admits to unprotected sex with 5 female partners over the past 6 months. Reports his father has Hepatitis C. Had orthopedic surgery to left foot in November 2017 following a fall. Denies any recent street drug use, homosexual activity, homelessness, or incarceration. Has never experienced abdominal pain like this before. His abdominal pain is better now. Denied any CP // SOB. No fever. Gen: A, A, O x 3 Chest: Diminished BS b/l Heart: S1S2+ RRR No murmurs Skin- icteric Eyes: Sclera - icteric a/p 1. Acute hepatitis due to Hep C Due to Hepatitis RUQ US showed hepatic dysfunction with hepatitis Total bili still trending high cont trend on LFT's His viral load came back as significantly high Will talk to GI about further treatment options
[2018-02-14] MEDS ORDERED: CefOXitin 1,000 MG VIAL ONE (16:03)
[2018-02-14] MEDS: cefOXitin 1,000 MG in 0.9 % Sodium Chloride Mini Bag 100 ML IVPB SCH ×2 (16:08→23:56)
[2018-02-15] MEDS: Ondansetron 4 MG/2 ML VIAL IVP PRN (01:13)
[2018-02-15] MEDS: *HR* OxyCODONE Immed Rel 5 MG TABLET PO PRN ×4 (05:05→23:03)
[2018-02-15 06:03] LABS: Basophils # 0.1 K/mcL (0.0-0.2); Eosinophils # 0.3 K/mcL (0.0-0.6); Eosinophils % 3.7 %; Hematocrit 42.5 % (37.5-50.1); Hemoglobin 14.1 g/dL (12.9-16.9); Immature Granulocytes % 0.3 % (0-4); Lymphocytes # 2.8 K/mcL (0.6-4.6); Lymphocytes % 35.2 %; Mean Corpuscular HGB Conc 33.2 g/dL (31.6-35.5); Mean Corpuscular Hemoglobin 28.6 pg (28.0-33.3); Mean Corpuscular Volume 86.2 fL (83.0-100.0); Mean Platelet Volume 11.4 fL (9.4-12.4); Monocytes # 0.9 K/mcL (0.0-1.3); Monocytes % 11.5 %; Neutrophils # 3.8 K/mcL (1.6-8.9); Platelet Count 277 K/mcL (140-400); Red Blood Count 4.93 M/mcL (4.19-5.50); Red Cell Distribution Width 16.3 % (11.5-14.5); Segmented Neutrophils % 48.3 %
[2018-02-15 06:24] LABS: Alanine Aminotransferase > 500 Units/L (7-52); Albumin 3.5 g/dL (3.5-5.7); Albumin/Globulin Ratio 1.5 (1.1-2.2); Alkaline Phosphatase 136 Units/L (34-104); Aspartate Amino Transferase 792 Units/L (13-39); BUN/Creatinine Ratio 7 (6-26); Bilirubin,Total 13.4 mg/dL (0.3-1.0); Blood Urea Nitrogen 5 mg/dL (6-20); Calcium 8.9 mg/dL (8.6-10.3); Carbon Dioxide 27 mEq/L (23-29); Chloride 100 mEq/L (98-107); Globulin 2.3 g/dL (2.4-3.5); Glucose 102 mg/dL (70-105); Osmolality,Calculated 275 (280-300); Potassium 4.2 mEq/L (3.5-5.1); Sodium 134 mEq/L (136-145); Total Protein 5.8 g/dL (6.4-8.9); eGFR For Non-African Americans > 60 (> 60)
[2018-02-15] MEDS: cefOXitin 1,000 MG in 0.9 % Sodium Chloride Mini Bag 100 ML IVPB SCH ×3 (07:34→23:33)
--- NOTE | 2018-02-15 08:23 | Internal Med Progress Note ---
<Molly Mcclellan - Last Filed: 02/15/18 13:42> Hospitalist Progress Note - Encounter Date of Encounter: 02/15/18 Time of Encounter: 08:05 - Subjective Interval History: Patient seen and examined. No acute events overnight. Patient is resting comfortably in bed. Patient states hes doing alright. Reports no change from yesterday. Admits RUQ abdominal pain at 7/10. Reports stools are still halie- colored and urine is dark. Denies fever/chills. Denies chest pain, shortness of breath. Denies nausea/vomiting, diarrhea/constipation. - Exam Vitals: Temp Pulse Resp BP Pulse Ox 97.9 F 65 16 96/59 95 02/15/18 08:16 02/15/18 08:16 02/15/18 08:16 02/15/18 08:16 02/15/18 08:16 Exam: General: Normal body habitus. Alert and oriented x3. No acute distress. Head: atraumatic, normocephalic. Eye: pupils equal and round. Sclera icteric. EOMI. Mouth: oral mucosa moist. Normal oropharynx. Neck: supple. Trachea midline. Lungs: CTAB. No rhonchi, rales or wheezes. No respiratory distress. No accessory muscle use. Cardiovascular: Normal S1 & S2. No rubs or gallops. No JVD. Pulse regular. Abdomen: Soft. Normal bowel sounds. Nondistended, no rigidity. Diffusely tender , especially at RUQ. Extremities: No deformity, edema or tenderness. No joint swelling or clubbing. Skin: warm, dry, and intact. - Assessment and Plan (1) Hepatitis Current Visit: Yes Status: Acute Assessment and Plan: Secondary to HCV. Hep C Ab reactive. Hep A and B negative. HIV negative. HCV viral load >27 million[address] abd/pelvis showed hepatitis with hepatic steatosis. Liver U/S showed liver dysfunction. No cirrhosis. No cholecystitis. HIDA scan showed hepatitis. Clinically improved. Continue symptomatic and supportive care. Awaiting GI recommendations. (2) Elevated LFTs Current Visit: Yes Status: Acute Assessment and Plan: Secondary to HCV hepatitis. On admission, total bili elevated at 9.6, AST elevated at 941, and ALT elevated at >500. CT abd/pelvis showed hepatitis with hepatic steatosis. RUQ US showed hepatic dysfunction with hepatitis. Today, total bili elevated at 13.4, AST elevated at 792, and ALT elevated at > 500. Clinically improved. Continue to trend LFT's. (3) Tobacco abuse Current Visit: Yes Status: Chronic Assessment and Plan: Smoking cessation encouraged. Denies need for nicotine patch. (4) Jaundice Current Visit: Yes Status: Acute Assessment and Plan: See above. DVT Prophylaxis: Treatment not Indicated - Low risk for VTE - Time Spent with Patient Total time spent is greater than 50% in coordination of care (as documented) at patient's floor/unit and/or counseling patient: Internal Medicine: Result - Labs CBC & Chem 7: 02/15/18 05:36 02/15/18 05:36 Labs: Short CBC 02/15/18 Range/Units 05:36 WBC 7.9 (4.3-11.1) K/mcL Hgb 14.1 (12.9-16.9) g/dL Hct 42.5 (37.5-50.1) % Plt Count 277 (140-400) K/mcL Neutrophils # 3.8 (1.6-8.9) K/mcL BMP 02/15/18 05:36 Sodium 134 L Potassium 4.2 Chloride 100 Carbon Dioxide 27 BUN 5 L Creatinine 0.73 Glucose 102 Calcium 8.9 Liver Function 02/15/18 Range/Units 05:36 Total Bilirubin 13.4 H (0.3-1.0) mg/dL AST 792 H (13-39) Units/L ALT > 500 H (7-52) Units/L Alkaline Phosphatase 136 H (34-104) Units/L Albumin 3.5 (3.5-5.7) g/dL - ABG Interpretation ABG results: PT/INR, D-dimer PT 12.2 Seconds (9.4-12.1) H 02/10/18 12:31 - Impressions Impressions Bile Acid Absorption NM 02/14/18 12:52 IMPRESSION: Persistent hepatic activity out to 60 minutes indicating hepatocellular dysfunction. This is nonspecific but raises concern for hepatitis. Nonvisualization of the gallbladder and proximal small bowel. Biliary obstruction cannot be entirely excluded. MRCP could be considered for further evaluation if clinically warranted. D/ / William Chavez MD / William Chavez MD Interpreting Provider: William Chavez MD - VTE Reasons for not Prescribing Prophylaxis: Treatment not Indicated - Low risk for VTE Consult Discharge Plan - Plan Referrals: NONE,PCP [Primary Care Provider] - <Chidi Freeman - Last Filed: 02/15/18 16:22> Hospitalist Progress Note - Encounter Date of Encounter: 02/15/18 - Exam Vitals: Temp Pulse Resp BP Pulse Ox 98.4 F 69 12 99/64 97 02/15/18 15:03 02/15/18 15:03 02/15/18 15:03 02/15/18 15:03 02/15/18 15:03 - Assessment and Plan (1) Hepatitis Current Visit: Yes Status: Acute (2) Tobacco abuse Current Visit: Yes Status: Chronic (3) Elevated LFTs Current Visit: Yes Status: Acute (4) Jaundice Current Visit: Yes Status: Acute - Time Spent with Patient Total time spent is greater than 50% in coordination of care (as documented) at patient's floor/unit and/or counseling patient: Internal Medicine: Result - Labs CBC & Chem 7: 02/15/18 05:36 02/15/18 05:36 Labs: Short CBC 02/15/18 Range/Units 05:36 WBC 7.9 (4.3-11.1) K/mcL Hgb 14.1 (12.9-16.9) g/dL Hct 42.5 (37.5-50.1) % Plt Count 277 (140-400) K/mcL Neutrophils # 3.8 (1.6-8.9) K/mcL BMP 02/15/18 05:36 Sodium 134 L Potassium 4.2 Chloride 100 Carbon Dioxide 27 BUN 5 L Creatinine 0.73 Glucose 102 Calcium 8.9 Liver Function 02/15/18 Range/Units 05:36 Total Bilirubin 13.4 H (0.3-1.0) mg/dL AST 792 H (13-39) Units/L ALT > 500 H (7-52) Units/L Alkaline Phosphatase 136 H (34-104) Units/L Albumin 3.5 (3.5-5.7) g/dL - ABG Interpretation ABG results: PT/INR, D-dimer PT 12.2 Seconds (9.4-12.1) H 02/10/18 12:31 - Impressions Impressions Abdomen MRI 02/15/18 14:11 IMPRESSION: Constellation of findings is highly suspicious for hepatitis. No biliary ductal dilation or evidence of choledocholithiasis. Cholecystitis is considered unlikely. Incidentally noted pancreatic divisum. D/ / Jose Gomez MD / Jose Gomez MD Interpreting Provider: Jose Gomez MD - Attending Attestation Mr. Nguyen is a 27 year old male with no significant past medical history who presents for 7/10 sharp constant abdominal pain since last Wednesday02/04/2018 getting progressively worse. Abdominal pain accompanied by white stools, dark urine, nausea, and chills. No alleviating or exacerbating factors. No current treatment. Admits to getting a tattoo on his left arm 3 months ago and is unsure if the tattoo needle was clean or contaminated. Also admits to unprotected sex with 5 female partners over the past 6 months. Reports his father has Hepatitis C. Had orthopedic surgery to left foot in November 2017 following a fall. Denies any recent street drug use, homosexual activity, homelessness, or incarceration. Has never experienced abdominal pain like this before. S: His abdominal pain is better now Exam General: Normal body habitus. Alert and oriented x3. No acute distress. Head: atraumatic, normocephalic. Eye: Positive scleral icterus Lungs: CTAB. No rhonchi, rales or wheezes. No respiratory distress. No accessory muscle use. Cardiovascular: Normal S1 & S2. No rubs or gallops. No JVD. Pulse regular. Abdomen: Soft. Normal bowel sounds. Nondistended, no rigidity. Diffusely tender , especially at RUQ. Extremities: No deformity, edema or tenderness. No joint swelling or clubbing. Skin: warm, dry, and intact. Plan Acute hepatitis C infection. Supportive care. Pain control. GI following Query Biliary obstruction. GI following a nd plan for MRCP, with possible ERCP in am DVT prophylaxis. SCDs
[2018-02-15] MEDS: Melatonin 3 MG TABLET PO PRN (23:32)
[2018-02-16] MEDS: cefOXitin 1,000 MG in 0.9 % Sodium Chloride Mini Bag 100 ML IVPB SCH ×3 (07:24→23:53)
[2018-02-16] MEDS: *HR* OxyCODONE Immed Rel 5 MG TABLET PO PRN ×3 (07:24→20:41)
[2018-02-16 08:13] LABS: HCV Quant Interpretation DETECTED (Not Detected)
[2018-02-16 08:17] LABS: Basophils # 0.1 K/mcL (0.0-0.2); Basophils % 1.4 %; Eosinophils # 0.3 K/mcL (0.0-0.6); Eosinophils % 4.9 %; Hematocrit 40.3 % (37.5-50.1); Hemoglobin 13.6 g/dL (12.9-16.9); Immature Granulocytes % 0.2 % (0-4); Lymphocytes # 2.2 K/mcL (0.6-4.6); Lymphocytes % 40.1 %; Mean Corpuscular HGB Conc 33.7 g/dL (31.6-35.5); Mean Corpuscular Hemoglobin 28.9 pg (28.0-33.3); Mean Corpuscular Volume 85.6 fL (83.0-100.0); Mean Platelet Volume 11.7 fL (9.4-12.4); Monocytes # 0.8 K/mcL (0.0-1.3); Monocytes % 13.6 %; Neutrophils # 2.2 K/mcL (1.6-8.9); Platelet Count 253 K/mcL (140-400); Red Blood Count 4.71 M/mcL (4.19-5.50); Red Cell Distribution Width 16.4 % (11.5-14.5); Segmented Neutrophils % 39.8 %
[2018-02-16 08:24] LABS: HCV Genotype by Sequencing 1A OR 1B
--- NOTE | 2018-02-16 08:45 | Internal Med Progress Note ---
<Molly Mcclellan - Last Filed: 02/16/18 16:20> Hospitalist Progress Note - Encounter Date of Encounter: 02/16/18 Time of Encounter: 08:15 - Subjective Interval History: Patient seen and examined. No acute events overnight. Patient is resting comfortably in bed. Patient states hes doing alright. Reports no change from yesterday. Admits RUQ abdominal pain at 7/10. Reports stools are still halie- colored and urine is dark. Denies fever/chills. Denies chest pain, shortness of breath. Denies nausea/vomiting, diarrhea/constipation. - Exam Vitals: Temp Pulse Resp BP Pulse Ox 97.3 F L 72 16 100/61 97 02/16/18 08:23 02/16/18 08:23 02/16/18 08:23 02/16/18 08:23 02/16/18 08:23 Exam: General: Normal body habitus. Alert and oriented x3. No acute distress. Head: atraumatic, normocephalic. Eye: pupils equal and round. Sclera icteric. EOMI. Mouth: oral mucosa moist. Normal oropharynx. Neck: supple. Trachea midline. Lungs: CTAB. No rhonchi, rales or wheezes. No respiratory distress. No accessory muscle use. Cardiovascular: Normal S1 & S2. No rubs or gallops. No JVD. Pulse regular. Abdomen: Soft. Normal bowel sounds. Nondistended, no rigidity. Diffusely tender , especially at RUQ. Extremities: No deformity, edema or tenderness. No joint swelling or clubbing. Skin: warm, dry, and intact. - Assessment and Plan (1) Hepatitis Current Visit: Yes Status: Acute Assessment and Plan: Hep C Ab reactive. Hep A and B negative. HIV negative. HCV viral load >27 [address] abd/pelvis showed hepatitis with hepatic steatosis. Liver U/S showed liver dysfunction. No cirrhosis. No cholecystitis. HIDA scan showed hepatitis. MRI abd showed hepatitis. Clinically improved. Continue symptomatic and supportive care. Day 3 of cefoxitin. Awaiting GI recommendations. (2) Elevated LFTs Current Visit: Yes Status: Acute Assessment and Plan: Secondary to HCV hepatitis. On admission, AST elevated at 941 and ALT elevated at >500. Today, AST elevated at 717, and ALT elevated at >500. Continue to trend LFT's. (3) Jaundice Current Visit: Yes Status: Acute Assessment and Plan: See above. (4) Tobacco abuse Current Visit: Yes Status: Chronic Assessment and Plan: Smoking cessation encouraged. Denies need for nicotine patch. (5) Elevated bilirubin Current Visit: Yes Status: Acute Assessment and Plan: Possibly secondary to intrahepatic dysfunction or biliary obstruction. On admission, total bili elevated at 9.6. Bilirubin uptrending. Today, total bili elevated at 14.9. AFP elevated at 18. CT abd/pelvis showed moderate gallbladder wall edema secondary to hepatitis vs cholecystitis. No gallstones. Gallbladder nondistended. Liver US showed thick walled gallbladder, no distention. No cholecystitis. No biliary dilation. HIDA scan showed hepatitis. Could not visualize gallbladder. MRI abd showed no cholecystitis. No biliary ductal dilation or choledocholithiasis. Incidental pancreatic divisum. Awaiting GI recommendations. DVT Prophylaxis: Treatment not Indicated - Low risk for VTE - Time Spent with Patient Total time spent is greater than 50% in coordination of care (as documented) at patient's floor/unit and/or counseling patient: Internal Medicine: Result - Labs CBC & Chem 7: 02/16/18 07:09 02/16/18 07:09 Labs: Short CBC 02/16/18 Range/Units 07:09 WBC 5.5 (4.3-11.1) K/mcL Hgb 13.6 (12.9-16.9) g/dL Hct 40.3 (37.5-50.1) % Plt Count 253 (140-400) K/mcL Neutrophils # 2.2 (1.6-8.9) K/mcL - ABG Interpretation ABG results: PT/INR, D-dimer PT 12.2 Seconds (9.4-12.1) H 02/10/18 12:31 - Impressions Impressions Abdomen MRI 02/15/18 14:11 IMPRESSION: Constellation of findings is highly suspicious for hepatitis. No biliary ductal dilation or evidence of choledocholithiasis. Cholecystitis is considered unlikely. Incidentally noted pancreatic divisum. D/ / Jose Gomez MD / Jose Gomez MD Interpreting Provider: Jose Gomez MD - VTE Reasons for not Prescribing Prophylaxis: Treatment not Indicated - Low risk for VTE Consult Discharge Plan - Plan Referrals: NONE,PCP [Primary Care Provider] - <Chidi Freeman - Last Filed: 02/16/18 16:37> Hospitalist Progress Note - Encounter Date of Encounter: 02/16/18 - Exam Vitals: Temp Pulse Resp BP Pulse Ox 97.8 F 72 16 97/61 97 02/16/18 11:48 02/16/18 11:48 02/16/18 11:48 02/16/18 11:48 02/16/18 11:48 - Assessment and Plan (1) Hepatitis Current Visit: Yes Status: Acute (2) Tobacco abuse Current Visit: Yes Status: Chronic (3) Elevated LFTs Current Visit: Yes Status: Acute (4) Jaundice Current Visit: Yes Status: Acute (5) Elevated bilirubin Current Visit: Yes Status: Acute - Time Spent with Patient Total time spent is greater than 50% in coordination of care (as documented) at patient's floor/unit and/or counseling patient: Internal Medicine: Result - Labs CBC & Chem 7: 02/16/18 07:09 02/16/18 07:09 Labs: Short CBC 02/16/18 Range/Units 07:09 WBC 5.5 (4.3-11.1) K/mcL Hgb 13.6 (12.9-16.9) g/dL Hct 40.3 (37.5-50.1) % Plt Count 253 (140-400) K/mcL Neutrophils # 2.2 (1.6-8.9) K/mcL BMP 02/16/18 07:09 Sodium 136 Potassium 4.1 Chloride 102 Carbon Dioxide 29 BUN 5 L Creatinine 0.75 Glucose 103 Calcium 8.8 Liver Function 02/16/18 Range/Units 07:09 Total Bilirubin 14.9 H (0.3-1.0) mg/dL AST 717 H (13-39) Units/L ALT > 500 H (7-52) Units/L Alkaline Phosphatase 132 H (34-104) Units/L Albumin 3.3 L (3.5-5.7) g/dL - ABG Interpretation ABG results: PT/INR, D-dimer PT 12.2 Seconds (9.4-12.1) H 02/10/18 12:31 - Attending Attestation Mr. Nguyen is a 27 year old male with no significant past medical history who presents for 7/10 sharp constant abdominal pain since last Wednesday02/04/2018 getting progressively worse. Abdominal pain accompanied by white stools, dark urine, nausea, and chills. No alleviating or exacerbating factors. No current treatment. Admits to getting a tattoo on his left arm 3 months ago and is unsure if the tattoo needle was clean or contaminated. Also admits to unprotected sex with 5 female partners over the past 6 months. Reports his father has Hepatitis C. Had orthopedic surgery to left foot in November 2017 following a fall. Denies any recent street drug use, homosexual activity, homelessness, or incarceration. Has never experienced abdominal pain like this before. S: His abdominal pain is better now Exam General: Normal body habitus. Alert and oriented x3. No acute distress. Head: atraumatic, normocephalic. Eye: Positive scleral icterus Lungs: CTAB. No rhonchi, rales or wheezes. No respiratory distress. No accessory muscle use. Cardiovascular: Normal S1 & S2. No rubs or gallops. No JVD. Pulse regular. Abdomen: Soft. Normal bowel sounds. Nondistended, no rigidity. Diffusely tender , especially at RUQ. Extremities: No deformity, edema or tenderness. No joint swelling or clubbing. Skin: warm, dry, and intact. Plan Acute hepatitis C infection. Supportive care. Pain control. GI following Query Biliary obstruction. MRCP negative but bilirubin continues to trend up. Advanced to full liquid diet. GI following DVT prophylaxis. SCDs
[2018-02-16 08:58] LABS: Alanine Aminotransferase > 500 Units/L (7-52); Albumin 3.3 g/dL (3.5-5.7); Albumin/Globulin Ratio 1.5 (1.1-2.2); Alkaline Phosphatase 132 Units/L (34-104); Aspartate Amino Transferase 717 Units/L (13-39); BUN/Creatinine Ratio 7 (6-26); Bilirubin,Total 14.9 mg/dL (0.3-1.0); Blood Urea Nitrogen 5 mg/dL (6-20); Calcium 8.8 mg/dL (8.6-10.3); Carbon Dioxide 29 mEq/L (23-29); Chloride 102 mEq/L (98-107); Globulin 2.2 g/dL (2.4-3.5); Glucose 103 mg/dL (70-105); Osmolality,Calculated 280 (280-300); Potassium 4.1 mEq/L (3.5-5.1); Sodium 136 mEq/L (136-145); Total Protein 5.5 g/dL (6.4-8.9); eGFR For Non-African Americans > 60 (> 60)
[2018-02-17] MEDS: *HR* OxyCODONE Immed Rel 5 MG TABLET PO PRN ×3 (04:28→20:54)
[2018-02-17 06:11] LABS: Basophils # 0.1 K/mcL (0.0-0.2); Basophils % 1.1 %; Eosinophils # 0.2 K/mcL (0.0-0.6); Eosinophils % 2.9 %; Hematocrit 40.7 % (37.5-50.1); Hemoglobin 13.8 g/dL (12.9-16.9); Immature Granulocytes % 0.2 % (0-4); Lymphocytes % 36.2 %; Mean Corpuscular HGB Conc 33.9 g/dL (31.6-35.5); Mean Corpuscular Hemoglobin 28.9 pg (28.0-33.3); Mean Corpuscular Volume 85.3 fL (83.0-100.0); Mean Platelet Volume 11.1 fL (9.4-12.4); Monocytes # 1.2 K/mcL (0.0-1.3); Neutrophils # 3.6 K/mcL (1.6-8.9); Platelet Count 254 K/mcL (140-400); Red Blood Count 4.77 M/mcL (4.19-5.50); Red Cell Distribution Width 16.8 % (11.5-14.5); Segmented Neutrophils % 44.6 %
[2018-02-17 06:45] LABS: Alanine Aminotransferase > 500 Units/L (7-52); Albumin 3.5 g/dL (3.5-5.7); Albumin/Globulin Ratio 1.5 (1.1-2.2); Alkaline Phosphatase 136 Units/L (34-104); Aspartate Amino Transferase 570 Units/L (13-39); BUN/Creatinine Ratio 7 (6-26); Bilirubin,Total 15.1 mg/dL (0.3-1.0); Blood Urea Nitrogen 5 mg/dL (6-20); Calcium 8.8 mg/dL (8.6-10.3); Carbon Dioxide 24 mEq/L (23-29); Chloride 103 mEq/L (98-107); Globulin 2.4 g/dL (2.4-3.5); Glucose 91 mg/dL (70-105); Osmolality,Calculated 277 (280-300); Sodium 135 mEq/L (136-145); Total Protein 5.9 g/dL (6.4-8.9); eGFR For Non-African Americans > 60 (> 60)
--- NOTE | 2018-02-17 08:01 | Internal Med Progress Note ---
<Molly Mcclellan - Last Filed: 02/17/18 13:01> Hospitalist Progress Note - Encounter Date of Encounter: 02/17/18 Time of Encounter: 07:45 - Subjective Interval History: Patient seen and examined. No acute events overnight. Patient is resting comfortably in bed. Patient states hes feeling a little better, but reports no change from yesterday. Admits RUQ abdominal pain at 7/10. Reports stools are still halie-colored and urine is dark. Denies fever/chills. Denies chest pain, shortness of breath. Denies nausea/vomiting, diarrhea/constipation. Advanced to regular diet. - Exam Vitals: Temp Pulse Resp BP Pulse Ox 98.3 F 73 14 102/66 97 02/17/18 06:41 02/17/18 06:41 02/17/18 06:41 02/17/18 06:41 02/17/18 06:41 Exam: General: Normal body habitus. Alert and oriented x3. No acute distress. Head: atraumatic, normocephalic. Eye: pupils equal and round. Sclera icteric. EOMI. Mouth: oral mucosa moist. Normal oropharynx. Neck: supple. Trachea midline. Lungs: CTAB. No rhonchi, rales or wheezes. No respiratory distress. No accessory muscle use. Cardiovascular: Normal S1 & S2. No rubs or gallops. No JVD. Pulse regular. Abdomen: Soft. Normal bowel sounds. Nondistended, no rigidity. Diffusely tender , especially at RUQ. Extremities: No deformity, edema or tenderness. No joint swelling or clubbing. Skin: warm, dry, and intact. - Assessment and Plan (1) Hepatitis Current Visit: Yes Status: Acute Assessment and Plan: Hep C Ab reactive. Hep A and B negative. HIV negative. HCV viral load >27 million. Genotype is 1A or 1B. CT abd/pelvis showed hepatitis with hepatic steatosis. Liver U/S showed liver dysfunction. No cirrhosis. No cholecystitis. HIDA scan showed hepatitis. MRI abd showed hepatitis. Clinically improved. Continue symptomatic and supportive care. Day 4 of cefoxitin. Awaiting GI recommendations. (2) Elevated LFTs Current Visit: Yes Status: Acute Assessment and Plan: Secondary to HCV hepatitis. On admission, AST elevated at 941 and ALT elevated at >500. Today, AST elevated at 570, and ALT elevated at >500. Clinically improved. Continue to trend LFT's. (3) Jaundice Current Visit: Yes Status: Acute Assessment and Plan: See above. (4) Tobacco abuse Current Visit: Yes Status: Chronic Assessment and Plan: Smoking cessation encouraged. Denies need for nicotine patch. (5) Elevated bilirubin Current Visit: Yes Status: Acute Assessment and Plan: Possibly secondary to intrahepatic dysfunction or biliary obstruction. On admission, total bili elevated at 9.6. Bilirubin uptrending. Today, total bili elevated at 15.1. AFP elevated at 18. KEYON, myeloperoxidase Ab, and F-actin Ab are negative. CT abd/pelvis showed moderate gallbladder wall edema secondary to hepatitis vs cholecystitis. No gallstones. Gallbladder nondistended. Liver US showed thick walled gallbladder, no distention. No cholecystitis. No biliary dilation. HIDA scan showed hepatitis. Could not visualize gallbladder. MRI abd showed no cholecystitis. No biliary ductal dilation or choledocholithiasis. Incidental pancreatic divisum. Awaiting GI recommendations. DVT Prophylaxis: SCD - Time Spent with Patient Total time spent is greater than 50% in coordination of care (as documented) at patient's floor/unit and/or counseling patient: Internal Medicine: Result - Labs CBC & Chem 7: 02/17/18 05:35 02/17/18 05:35 Labs: Short CBC 02/16/18 02/17/18 Range/Units 07:09 05:35 WBC 5.5 8.2 (4.3-11.1) K/mcL Hgb 13.6 13.8 (12.9-16.9) g/dL Hct 40.3 40.7 (37.5-50.1) % Plt Count 253 254 (140-400) K/mcL Neutrophils # 2.2 3.6 (1.6-8.9) K/mcL BMP 02/16/18 02/17/18 07:09 05:35 Sodium 136 135 L Potassium 4.1 4.0 Chloride 102 103 Carbon Dioxide 29 24 BUN 5 L 5 L Creatinine 0.75 0.72 Glucose 103 91 Calcium 8.8 8.8 Liver Function 02/16/18 02/17/18 Range/Units 07:09 05:35 Total Bilirubin 14.9 H 15.1 H (0.3-1.0) mg/dL AST 717 H 570 H (13-39) Units/L ALT > 500 H > 500 H (7-52) Units/L Alkaline Phosphatase 132 H 136 H (34-104) Units/L Albumin 3.3 L 3.5 (3.5-5.7) g/dL - ABG Interpretation ABG results: PT/INR, D-dimer PT 12.2 Seconds (9.4-12.1) H 02/10/18 12:31 - VTE Reasons for not Prescribing Prophylaxis: Treatment not Indicated - Low risk for VTE Consult Discharge Plan - Plan Referrals: NONE,PCP [Primary Care Provider] - <Chidi Freeman - Last Filed: 02/17/18 17:18> Hospitalist Progress Note - Encounter Date of Encounter: 02/17/18 - Exam Vitals: Temp Pulse Resp BP Pulse Ox 98.1 F 68 14 131/70 99 02/17/18 15:52 02/17/18 15:52 02/17/18 15:52 02/17/18 15:52 02/17/18 15:52 - Assessment and Plan (1) Hepatitis Current Visit: Yes Status: Acute (2) Tobacco abuse Current Visit: Yes Status: Chronic (3) Elevated LFTs Current Visit: Yes Status: Acute (4) Jaundice Current Visit: Yes Status: Acute (5) Elevated bilirubin Current Visit: Yes Status: Acute - Time Spent with Patient Total time spent is greater than 50% in coordination of care (as documented) at patient's floor/unit and/or counseling patient: Internal Medicine: Result - Labs CBC & Chem 7: 02/17/18 05:35 02/17/18 05:35 Labs: Short CBC 02/17/18 Range/Units 05:35 WBC 8.2 (4.3-11.1) K/mcL Hgb 13.8 (12.9-16.9) g/dL Hct 40.7 (37.5-50.1) % Plt Count 254 (140-400) K/mcL Neutrophils # 3.6 (1.6-8.9) K/mcL BMP 02/17/18 05:35 Sodium 135 L Potassium 4.0 Chloride 103 Carbon Dioxide 24 BUN 5 L Creatinine 0.72 Glucose 91 Calcium 8.8 Liver Function 02/17/18 Range/Units 05:35 Total Bilirubin 15.1 H (0.3-1.0) mg/dL AST 570 H (13-39) Units/L ALT > 500 H (7-52) Units/L Alkaline Phosphatase 136 H (34-104) Units/L Albumin 3.5 (3.5-5.7) g/dL - ABG Interpretation ABG results: PT/INR, D-dimer PT 12.2 Seconds (9.4-12.1) H 02/10/18 12:31 - Attending Attestation Mr. Nguyen is a 27 year old male with no significant past medical history who presents for 11/16 sharp constant abdominal pain since last Wednesday02/04/2018 getting progressively worse. Abdominal pain accompanied by white stools, dark urine, nausea, and chills. No alleviating or exacerbating factors. No current treatment. Admits to getting a tattoo on his left arm 3 months ago and is unsure if the tattoo needle was clean or contaminated. Also admits to unprotected sex with 5 female partners over the past 6 months. Reports his father has Hepatitis C. Had orthopedic surgery to left foot in November 2017 following a fall. Denies any recent street drug use, homosexual activity, homelessness, or incarceration. Has never experienced abdominal pain like this before. S: His abdominal pain is better now Exam General: Normal body habitus. Alert and oriented x3. No acute distress. Head: atraumatic, normocephalic. Eye: Positive scleral icterus Lungs: CTAB. No rhonchi, rales or wheezes. No respiratory distress. No accessory muscle use. Cardiovascular: Normal S1 & S2. No rubs or gallops. No JVD. Pulse regular. Abdomen: Soft. Normal bowel sounds. Nondistended, no rigidity. Diffusely tender , especially at RUQ. Extremities: No deformity, edema or tenderness. No joint swelling or clubbing. Skin: warm, dry, and intact. Plan Acute hepatitis C infection. Supportive care. Pain control. Follow up final GI recs Query Biliary obstruction. MRCP negative. Likely 2/2 to intrahepatic cholestasis from acute hepatitis. On IV fluids. Advanced diet to regular today. DVT prophylaxis. SCDs
[2018-02-17] MEDS: cefOXitin 1,000 MG in 0.9 % Sodium Chloride Mini Bag 100 ML IVPB SCH ×2 (08:37→17:44)
[2018-02-17] MEDS ORDERED: 0.9 % Sodium Chloride 1,000 ML IVC SCH (09:30)
[2018-02-17] MEDS ORDERED: 0.9 % Sodium Chloride 1,000 ML ONE (10:14)
--- NOTE | 2018-02-17 11:29 | Gastroenterology Progress Note ---
<Issa De Anda - Last Filed: 02/17/18 11:26> Date of Encounter: 02/17/18 Time of Encounter: 10:00 - Assessment and plan (1) Abdominal pain Status: Acute Assessment and plan: RUQ US with no evidence of cholecystitis, gallbladder is nondistended, but appears thick walled. HIDA shows persistent hepatic activity out to 60 minutes indicating hepatocellular dysfunction. MRCP with constellation of findings is highly suspicious for hepatitis, no biliary ductal dilation or evidence of choledocholithiasis, cholecystitis is considered unlikely. Pain is improving. Patient is tolerating full liquid diet. Advance diet to regular. Qualifiers: Abdominal location: generalized Qualified Code(s): R10.84 - Generalized abdominal pain (2) Hepatitis C antibody test positive Status: Acute Assessment and plan: Hep C viral load 7.44 million with genotype 1A/1B. (3) Elevated LFTs Status: Acute Assessment and plan: Total bili continues to rise, up to 15.1 today. No CBD obstruction or dilation noted on imaging. Patient is clinically doing well. Continue to monitor hepatic panel. If tolerating regular diet, may be able to monitor LFTs as outpatient. Dr. Lemus will see patient this afternoon, and make final recommendations. (4) Jaundice Status: Acute (5) Elevated AFP Status: Acute Assessment and plan: AFP 18, no liver lesions noted on RUQ US or MRCP. AMA, KEYON, F-actin were n egative. (6) Elevated ferritin Status: Acute Assessment and plan: Ferritin 1492. Check hemochromatosis panel. - Time Spent With Patient Total time spent is greater than 50% in coordination of care (as documented) at patient's floor/unit and/or counseling patient: - Subjective Interval history: Patient is resting in bed. He states his abdominal pain has improved since admission, but states he continues to have some RUQ and epigastric pain at times. - Constitutional Vitals: Temp Pulse Resp BP Pulse Ox 97.9 F 79 14 100/62 99 02/17/18 10:57 02/17/18 10:57 02/17/18 10:57 02/17/18 10:57 02/17/18 10:57 General appearance: Present: cooperative, A&O X 3, no acute distress, answers questions appropriately - Head Head exam: Present: atraumatic, normocephalic - Eye Eye exam: Present: scleral icterus (improving) - ENT ENT exam: Present: mucous membranes moist - Neck Neck exam general surgery: Present: normal inspection, trachea midline - Respiratory Respiratory exam: Present: CTAB. Absent: rales, rhonchi - Cardiovascular Cardiovascular exam: Present: RRR, +S1, +S2 - GI/Abdominal GI/Abdominal exam: Present: soft, tenderness (mild RUQ tenderness), no peritoneal signs. Absent: distended, firm, guarding - Rectal Rectal exam: Present: deferred - Extremities Exam Extremities exam: Present: warm - Neurological Exam Neurological exam: Present: no focal deficits - Psychiatric Psychiatric exam: Present: normal affect, normal mood - Skin Skin exam: Present: dry, intact, warm. Absent: normal color (jaundice- improving) Results - Labs CBC & Chem 7: 02/17/18 05:35 02/17/18 05:35 Labs: Last Result Calcium 8.8 mg/dL (8.6-10.3) 02/17/18 05:35 Ferritin 1492 ng/mL (20-250) H 02/11/18 09:18 Hepatitis C Genotype 1A OR 1B 02/11/18 09:18 Entire Visit Hgb 13.8 g/dL (12.9-16.9) 02/17/18 05:35 Hct 40.7 % (37.5-50.1) 02/17/18 05:35 PT 12.2 Seconds (9.4-12.1) H 02/10/18 12:31 Ferritin 1492 ng/mL (20-250) H 02/11/18 09:18 Total Bilirubin 15.1 mg/dL (0.3-1.0) H 02/17/18 05:35 AST 570 Units/L (13-39) H 02/17/18 05:35 ALT > 500 Units/L (7-52) H 02/17/18 05:35 Gchvf-7-Zqhqtnplklg 164 mg/dL (90-200) 02/11/18 09:18 Ceruloplasmin 23 mg/dL (17-54) 02/11/18 09:18 Amylase 37 Units/L (29-103) 02/10/18 12:31 Lipase 37 Units/L (11-82) 02/10/18 12:31 Acetaminophen < 10 mcg/mL (10-20) L 02/10/18 12:31 F-Actin IgG Antibody 11 Units (0-19) 02/11/18 09:18 - ABG ABG results: PT/INR, D-dimer PT 12.2 Seconds (9.4-12.1) H 02/10/18 12:31 - VTE Reasons for not Prescribing Prophylaxis: Treatment not Indicated - Low risk for VTE Consult Discharge Plan - Plan Referrals: [facility] [Outside] [facility] [Outside] NONE,PCP [Primary Care Provider] - Konstantin Hodges MD [Partnered Physician] - <Amilcar Lemus - Last Filed: 02/25/18 07:49> - Time Spent With Patient Total time spent is greater than 50% in coordination of care (as documented) at patient's floor/unit and/or counseling patient: - Constitutional Vitals: Temp Pulse Resp BP Pulse Ox 98.1 F 60 14 104/64 97 02/18/18 06:39 02/18/18 06:39 02/18/18 06:39 02/18/18 06:39 02/18/18 06:39 Results - Labs CBC & Chem 7: 02/18/18 01:04 02/18/18 01:04 Labs: Last Result Calcium 8.5 mg/dL (8.6-10.3) L 02/18/18 01:04 Ferritin 1492 ng/mL (20-250) H 02/11/18 09:18 Hepatitis C Genotype 1A OR 1B 02/11/18 09:18 Entire Visit Hgb 13.5 g/dL (12.9-16.9) 02/18/18 01:04 Hct 40.0 % (37.5-50.1) 02/18/18 01:04 PT 12.2 Seconds (9.4-12.1) H 02/10/18 12:31 Ferritin 1492 ng/mL (20-250) H 02/11/18 09:18 Total Bilirubin 11.3 mg/dL (0.3-1.0) H 02/18/18 01:04 AST 415 Units/L (13-39) H 02/18/18 01:04 ALT 395 Units/L (7-52) H 02/18/18 01:04 Xixmp-2-Qppayojdnta 164 mg/dL (90-200) 02/11/18 09:18 Ceruloplasmin 23 mg/dL (17-54) 02/11/18 09:18 Amylase 37 Units/L (29-103) 02/10/18 12:31 Lipase 37 Units/L (11-82) 02/10/18 12:31 Acetaminophen < 10 mcg/mL (10-20) L 02/10/18 12:31 F-Actin IgG Antibody 11 Units (0-19) 02/11/18 09:18 Hemochromat Specimen WHOLE BLOOD 02/17/18 11:46 Hemochrom C282Y Mutation NEGATIVE 02/17/18 11:46 Hemochrom H63D Mutation NEGATIVE 02/17/18 11:46 Hemochrom S65c Mutation NEGATIVE 02/17/18 11:46 Hemochromatosis Interp SEE NOTE 02/17/18 11:46 - ABG ABG results: PT/INR, D-dimer PT 12.2 Seconds (9.4-12.1) H 02/10/18 12:31 - Attending Attestation Clinically the patient is actually doing better for gastric pain has reduced his diet at the present time and went continuing come to advance his diet as tolerated and be discharged to follow up at the office I did a HIDA scan but it shows which confirms the acute hepatitis. 2. We will follow his transaminases and bilirubin trend as outpatient thank you for this consultation I examined this patient and my medical decision-making was reviewed with the Resident Physician. I agree with the documented findings, disposition and treatment plan as described except to the extent set forth below.
[2018-02-17] MEDS: Melatonin 3 MG TABLET PO PRN (20:54)
[2018-02-18] MEDS: cefOXitin 1,000 MG in 0.9 % Sodium Chloride Mini Bag 100 ML IVPB SCH ×2 (00:32→08:36)
[2018-02-18 02:01] LABS: Basophils # 0.1 K/mcL (0.0-0.2); Basophils % 1.1 %; Eosinophils # 0.4 K/mcL (0.0-0.6); Eosinophils % 5.5 %; Hemoglobin 13.5 g/dL (12.9-16.9); Immature Granulocytes % 0.2 % (0-4); Lymphocytes # 2.6 K/mcL (0.6-4.6); Lymphocytes % 41.8 %; Mean Corpuscular HGB Conc 33.8 g/dL (31.6-35.5); Mean Corpuscular Hemoglobin 28.8 pg (28.0-33.3); Mean Corpuscular Volume 85.5 fL (83.0-100.0); Monocytes # 0.6 K/mcL (0.0-1.3); Neutrophils # 2.6 K/mcL (1.6-8.9); Platelet Count 240 K/mcL (140-400); Red Blood Count 4.68 M/mcL (4.19-5.50); Red Cell Distribution Width 17.2 % (11.5-14.5); Segmented Neutrophils % 41.4 %
[2018-02-18 02:09] LABS: Alanine Aminotransferase 395 Units/L (7-52); Albumin 3.2 g/dL (3.5-5.7); Albumin/Globulin Ratio 1.4 (1.1-2.2); Alkaline Phosphatase 130 Units/L (34-104); Aspartate Amino Transferase 415 Units/L (13-39); Bilirubin,Total 11.3 mg/dL (0.3-1.0); Blood Urea Nitrogen 6 mg/dL (6-20); Calcium 8.5 mg/dL (8.6-10.3); Carbon Dioxide 24 mEq/L (23-29); Chloride 107 mEq/L (98-107); Globulin 2.3 g/dL (2.4-3.5); Glucose 112 mg/dL (70-105); Osmolality,Calculated 280 (280-300); Sodium 136 mEq/L (136-145); Total Protein 5.5 g/dL (6.4-8.9)
[2018-02-18 03:38] LABS: BUN/Creatinine Ratio 8 (6-26); eGFR For Non-African Americans > 60 (> 60)
[2018-02-18] MEDS: *HR* OxyCODONE Immed Rel 5 MG TABLET PO PRN (03:39)
[2018-02-18 06:41] VITALS: BP 104/64
--- NOTE | 2018-02-18 09:46 | Discharge Summary ---
<Molly Mcclellan - Last Filed: 02/18/18 09:44> - NOTES TO OUTPATIENT PROVIDER Notes to Outpatient Provider: Patient needs followup with GI. Patient needs followup on hemochromatosis panel. Orders not resulted at time of discharge: Pending orders 02/17/18 11:46 Hemochromatosis 3 Mutatations Routine Date of Encounter: 02/18/18 Time of Encounter: 08:15 - Discharge Diagnosis (1) Hepatitis Priority: Primary Status: Acute (2) Elevated LFTs Priority: Primary Status: Acute (3) Jaundice Priority: Primary Status: Acute (4) Tobacco abuse Priority: Secondary Status: Chronic (5) Elevated bilirubin Priority: Primary Status: Acute Hospital course: Mr. Nguyen is a 27 year old male with no significant past medical history who presented for 7/10 sharp constant abdominal pain since last Wednesday02/04/2018 getting progressively worse. Abdominal pain accompanied by white stools, dark urine, nausea, and chills. No alleviating or exacerbating factors. No current treatment. Admits to getting a tattoo on his left arm 3 months ago and is unsure if the tattoo needle was clean or contaminated. Also admits to unprotected sex with 5 female partners over the past 6 months. Reports his father has Hepatitis C. Had orthopedic surgery to left foot in November 2017 following a fall. Denies any recent street drug use, homosexual activity, homelessness, or incarceration. Has never experienced abdominal pain like this before. Vital signs were stable. CBC and BMP were unremarkable. Hepatic panel showed elevated total bilirubin at 9.6, elevated direct and indirect bilirubin at 6.5 and 3.1, elevated AST/ALT at 941 and >500, and elevated ALP at 158. PT/INR was unremarkable. Lactic acid was normal. CK was normal. AAT1 was normal. UA was negative. Amylase/lipase were normal. AFP was elevated at 18. KEYON, myeloperoxidase Ab, and F-actin Ab were negative. Acetaminophen was negative. Ferritin was elevated at 1492. Hepatitis C antibody was reactive. Hep A and B were negative. HCV viral load was >27 million. HCV genotype was 1A or 1B. CT abd /pelvis showed hepatitis with hepatic steatosis. And moderate gallbladder wall edema secondary to hepatitis vs cholecystitis. No gallstones. Gallbladder nondistended. Patient was given symptomatic and supportive care for viral hepatitis and elevated LFTs. GI was consulted and liver ultrasound was performed. It showed liver dysfunction. No cirrhosis. Thick walled gallbladder, no distention. No cholecystitis. No biliary dilation. Bilirubin continued to uptrend. Cefoxitin was started and HIDA scan performed. It showed hepatitis. Could not visualize gallbladder. MRI abd was performed that showed hepatitis. No cholecystitis. No biliary ductal dilation or choledocholithiasis. Incidental pancreatic divisum. Symptoms are improved and patient able to tolerate regular diet well. LFTs, including bilirubin, are downtrending. Stools are normal-colored. - Time Spent with Patient Total time spent providing and/or coordinating discharge services: Greater than 30 minutes (42 minutes) - Discharge Medications Home Medications: No Known Home Drugs 02/10/18 [History] Allergies/Adverse Reactions: 3 Allergy/AdvReac Type Severity Reaction Status Date / Time No Known Allergies Allergy Verified 12/15/17 17:23 Date of admission: 02/11/18 09:24 Primary care physician: PCP NONE Consults: Gastroenterology Discharging clinician: Molly Mcclellan Anticipated date of discharge: 02/18/18 - Constitutional Vitals: Temp Pulse Resp BP Pulse Ox 98.1 F 60 14 104/64 97 02/18/18 06:39 02/18/18 06:39 02/18/18 06:39 02/18/18 06:39 02/18/18 06:39 Exam: General: Normal body habitus. Alert and oriented x3. No acute distress. Head: atraumatic, normocephalic. Eye: pupils equal and round. Sclera icteric. EOMI. Mouth: oral mucosa moist. Normal oropharynx. Neck: supple. Trachea midline. Lungs: CTAB. No rhonchi, rales or wheezes. No respiratory distress. No accessory muscle use. Cardiovascular: Normal S1 & S2. No rubs or gallops. No JVD. Pulse regular. Abdomen: Soft. Normal bowel sounds. Nondistended, no rigidity. Diffusely tender , especially at RUQ. Extremities: No deformity, edema or tenderness. No joint swelling or clubbing. Skin: warm, dry, and intact. - Patient Status Disposition: Home, Self-Care Condition: Good - Discharge Instructions Follow Up With: [facility] [Outside] [facility] [Outside] NONE,PCP [Primary Care Provider] - Gul,Konstantin, MD [Partnered Physician] - - Diet and Activity Activity: increase activity as tolerated Diet: advance to your usual diet - VTE Reasons for not Prescribing Prophylaxis: Treatment not Indicated - Low risk for VTE <Chidi Freeman - Last Filed: 02/18/18 16:14> Orders not resulted at time of discharge: Pending orders 02/17/18 11:46 Hemochromatosis 3 Mutatations Routine Date of Encounter: 02/18/18 - Discharge Diagnosis (1) Hepatitis Status: Acute (2) Tobacco abuse Status: Chronic (3) Elevated LFTs Status: Acute (4) Jaundice Status: Acute (5) Elevated bilirubin Status: Acute Hospital course: Mr. Nguyen is a 27 year old male - Time Spent with Patient Total time spent providing and/or coordinating discharge services: Date of admission: 02/11/18 09:24 Primary care physician: PCP NONE - Constitutional Vitals: Temp Pulse Resp BP Pulse Ox 98.1 F 60 14 104/64 97 02/18/18 06:39 02/18/18 06:39 02/18/18 06:39 02/18/18 06:39 02/18/18 06:39 - Attending Attestation Mr. Nguyen is a 27 year old male with no significant past medical history who presents for 7/10 sharp constant abdominal pain since last Wednesday02/04/2018 getting progressively worse. Abdominal pain accompanied by white stools, dark urine, nausea, and chills. No alleviating or exacerbating factors. No current treatment. Admits to getting a tattoo on his left arm 3 months ago and is unsure if the tattoo needle was clean or contaminated. Also admits to unprotected sex with 5 female partners over the past 6 months. Reports his father has Hepatitis C. Had orthopedic surgery to left foot in November 2017 following a fall. Denies any recent street drug use, homosexual activity, homelessness, or incarceration. Has never experienced abdominal pain like this before. S: His abdominal pain is better now Exam General: Normal body habitus. Alert and oriented x3. No acute distress. Head: atraumatic, normocephalic. Eye: Positive scleral icterus Lungs: CTAB. No rhonchi, rales or wheezes. No respiratory distress. No accessory muscle use. Cardiovascular: Normal S1 & S2. No rubs or gallops. No JVD. Pulse regular. Abdomen: Soft. Normal bowel sounds. Nondistended, no rigidity. Diffusely tender , especially at RUQ. Extremities: No deformity, edema or tenderness. No joint swelling or clubbing. Skin: warm, dry, and intact. Plan Acute hepatitis C infection. Supportive care. Pain control. Bilirubin has started to trend down. Pt has improved jaundice and minimal abdominal pain. Discharged to follow up outpatient with GI. Agree with discharge summary as above Query Biliary obstruction. MRCP negative. Likely 2/2 to intrahepatic cholestasis from acute hepatitis. On IV fluids. Advanced diet to regular today. DVT prophylaxis. SCDs
[2018-02-20 17:44] LABS: C282Y Hemochromatosis Mutation NEGATIVE; H63D Hemochromatosis Mutation NEGATIVE; HFE Specimen Type WHOLE BLOOD; S65C Hemochromatosis Mutation NEGATIVE
== END 2018-02-18 12:20 | disposition home or self-care (01) ==
LOC: EMEROOARM 11:41 → INTOOBSV 15:46 → 3ANU 15:46 → SUATTDRO 02-11 09:24
PROVIDERS: ADMIT Internal Medicine; ATTEND Student in an Organized Health Care Education/Training Program